=== PATIENT | female | born 1935 | race Caucasian/White ===

== ENCOUNTER 2018-01-22 23:17 | Emergency (ER) | payer MEDICARE, OTHER, SELFPAY ==
[2018-01-22 23:30] VITALS: BP 152/40; PULSE 61; RESP 17; TEMP 37.2; O2SAT 74; BMI 27.6
[2018-01-22 23:34] VITALS: O2SAT 96
--- NOTE | 2018-01-22 23:34 | ED_ITS ---
HPI - SOB/Dyspnea General Chief Complaint: Shortness of Breath/Dyspnea Stated Complaint: short of breath Time Seen by Provider: 01/22/18 23:33 Source: patient Mode of arrival: ambulatory Limitations: no limitations History of Present Illness The patient developed shortness of breath at home earlier today. She has no fever. Her cough is dry. She denies chest pain or peripheral edema. She has a remote history of CHF, nothing current. She has no history of CAD. She is a nonsmoker, she has no history of asthma. She is worried about pneumonia. She denies sinus pressure, sore throat or ear pressure. Her cough is nonproductive. She has no calf pain or swelling. She does have hypertension, hyperlipidemia and diabetes. She denies history of asthma, but she has previously been on albuterol inhaler. Related Data Home Medications Medication Instructions Recorded Confirmed VITAMIN D (Vitamin D3) #0 01/10/17 albuterol sulfate [Ventolin HFA] #0 01/10/17 amlodipine [Norvasc] #0 01/10/17 aspirin #0 01/10/17 carvedilol [Coreg] #0 01/10/17 cinacalcet [Sensipar] #0 01/10/17 clonazepam #0 01/10/17 fluticasone #0 01/10/17 fluticasone [Flovent HFA] #0 01/10/17 fluticasone-salmeterol [Advair #0 01/10/17 Diskus] insulin glargine [Lantus U-100 #0 01/10/17 Insulin] insulin regular human [Novolin R #0 01/10/17 Regular U-100 Insuln] loratadine #0 01/10/17 prochlorperazine maleate #0 01/10/17 simvastatin #0 01/10/17 tolterodine #0 01/10/17 Previous Rx's Medication Instructions Recorded prednisone 40 mg PO DAILY 5 Days #10 tab 01/23/18 Allergies Allergy/AdvReac Type Severity Reaction Status Date / Time Penicillins [PENICILLINS] Allergy Unknown RASH Unverified 09/29/17 12:03 Sulfa (Sulfonamide Allergy Unknown RASH Unverified 09/29/17 12:03 Antibiotics) [SULFA (SULFONAMIDE ANTIBIOTICS)] Review of Systems Review of Systems All systems reviewed & are unremarkable except as noted in HPI and below Constitutional Denies chills, Denies fever(s), Denies lethargy and Denies weakness Eyes Denies change in vision, Denies eye discharge and Denies irritation ENT Ears, Nose, Mouth, and Throat: Denies sinus pressure and Denies sore throat Cardiovascular Denies chest pain, Denies irregular heart rhythm, Denies lightheadedness, Denies palpitations, Denies dyspnea, Denies dyspnea on exertion and Denies orthopnea Respiratory Reports cough, Denies excessive phlegm production, Denies dyspnea and Denies dyspnea on exertion Gastrointestinal Gastrointestinal: Denies abdominal pain, Denies melena, Denies change in bowel habits, Reports diarrhea ( One episode this evening.), Denies nausea and Denies vomiting Genitourinary Denies dysuria Musculoskeletal Denies joint swelling and Denies muscle cramps Integumentary/Breasts Denies erythema, Denies rash and Denies wounds Neurologic Denies weakness Endocrine Denies palpitations PFSH Medical History Diabetes (Acute) Hyperlipidemia (Acute) Hypertension (Acute) Renal failure (Acute) Social History Smoking Status: Never smoker Exam Initial Vital Signs Initial Vital Signs: Vital Signs Temperature 99.0 F 01/22/18 23:30 Pulse Rate 61 01/22/18 23:30 Respiratory Rate 17 01/22/18 23:30 Blood Pressure 152/40 H 01/22/18 23:30 Pulse Oximetry 74 L 01/22/18 23:30 Const General: cooperative, comfortable and well developed Nutritional Appearance: well nourished Orientation: alert, awake, oriented x3 and not confused [facility] Head: normocephalic and atraumatic Ears: external ears normal and TM's normal bilaterally Nose: external nose normal and No nasal discharge Face and sinus: sinuses nontender, face symmetric, no sinus tenderness and No dry mucous membranes Mouth: oral mucosae normal and moist mucous membranes Teeth and gingiva: dentition normal Throat: tonsils normal and uvula midline Eyes General: appearance normal, both eyes and all related structures Eyelids: eyelids normal Conjunctivae: conjunctivae normal Sclera: sclerae normal Pupils: PERRL EOM: EOM intact bilaterally Neck Neck: normal visual inspection, trachea midline, No lymphadenopathy, No midline deformity and No JVD Lymphatic: No lymphadenopathy Chest Chest: normal inspection of the chest Resp Effort & Inspection: normal respiratory effort, able to speak in complete sentences, no respiratory distress and no use of accessory muscles Auscultation: no rales, no rhonchi and wheezes scattered wheezes Cardio Rate: regular rate Rhythm: regular rhythm Heart Sounds: S2 normal, no click, no gallops, no murmurs and no rubs Pulses: normal peripheral pulses GI Inspection: non-distended Palpation: soft, no hepatosplenomegaly, No guarding, No pulsatile mass and No tender Auscultation: normal bowel sounds Back/Spine/Pelvis Back: No CVA tenderness Skin General: no rashes or lesions noted Neuro General: alert, oriented x3, gait normal and no focal motor deficits Speech: speech normal Extrem General: full ROM, no clubbing, cyanosis or edema, no pedal edema and no calf tenderness Course Orders Ordered: ED Orders 01/22/18 23:36 Consult to Respiratory Therapy Evaluate & Treat EKG-12 Lead Stat 01/22/18 23:37 XR chest 1V Stat Discontinued Medications Albuterol (Ventolin) 2.5 mg INH NOW ONE Stop: 01/23/18 01:30 Last Admin: 01/23/18 01:54 Dose: 2.5 mg Albuterol/Ipratropium (Duoneb) 3 ml INH NOW ONE Stop: 01/22/18 23:35 Last Admin: 01/22/18 23:35 Dose: 3 ml Methylprednisolone (Solu-Medrol 125 Mg Vial) 125 mg IV NOW ONE Stop: 01/23/18 01:30 Last Admin: 01/23/18 01:51 Dose: 125 mg Vital Signs - 8 hr 01/22/18 23:30 01/22/18 23:34 01/22/18 23:35 Temperature 99.0 F Pulse Rate 61 58 L Respiratory Rate 17 19 Blood Pressure 152/40 H Blood Pressure [Left Arm] Pulse Oximetry 74 L 96 98 01/23/18 01:54 01/23/18 01:59 01/23/18 02:55 Temperature Pulse Rate 65 62 Respiratory Rate 18 17 Blood Pressure Blood Pressure [Left Arm] 187/47 H Pulse Oximetry 96 96 96 MDM - SOB/Dyspnea Lab Data Attestation: I reviewed the patient's lab results. Result diagrams: 01/22/18 00:26 01/22/18 00:26 Lab Results 01/22/18 01/22/18 01/22/18 Range/Units 00:26 00:26 00:26 WBC 9.1 (4.5-11.0) X10^3/uL RBC 2.84 L (4.0-5.2) X10^6/uL Hgb 9.9 L (12.0-16.0) g/dL Hct 29.1 L (36-46) % MCV 102.2 H (80-100) fL MCH 34.8 H (26-34) PG MCHC 34.0 (30-36) % RDW 12.9 (11.6-14.8) % Plt Count 308 (150-400) X10^3/uL Neut % (Auto) 75.8 H (50-75) % Lymph % (Auto) 11.9 L (25-40) % [place] % (Auto) 8.9 (3-14) % Eos % (Auto) 2.3 (2-4) % Baso % (Auto) 1.1 (0-2) % Neut # (Auto) 6900 H (1304-9642) /uL PT 11.1 (10.1-12.7) SECONDS INR 1.0 (0.9-1.3) APTT 28 (26.4-36.2) SECONDS D-Dimer 708 H (<230) ng/mL Sodium 138 (137-145) mmol/L Potassium 4.4 (3.4-5.1) mmol/L Chloride 90 L (98-107) mmol/L Carbon Dioxide 35 H (22-32) mmol/L BUN 37 H (7-17) mg/dL Creatinine 6.00 H (0.52-1.04) mg/dL Estimated GFR 6.7 L (>60) mL/min BUN/Creatinine Ratio 6.2 (6-22) Glucose 125 H (80-110) mg/dL Lactate (0.7-2.1) mmol/L Calcium 9.4 (8.4-10.2) mg/dL Magnesium 2.3 (1.6-2.3) mg/dL Total Creatine Kinase 55 (30-135) U/L Troponin I 0.024 (0.01-0.034) ng/mL B-Natriuretic Peptide 476.0 H (<100) 01/22/18 Range/Units 00:26 WBC (4.5-11.0) X10^3/uL RBC (4.0-5.2) X10^6/uL Hgb (12.0-16.0) g/dL Hct (36-46) % MCV (80-100) fL MCH (26-34) PG MCHC (30-36) % RDW (11.6-14.8) % Plt Count (150-400) X10^3/uL Neut % (Auto) (50-75) % Lymph % (Auto) (25-40) % [place] % (Auto) (3-14) % Eos % (Auto) (2-4) % Baso % (Auto) (0-2) % Neut # (Auto) (5224-2764) /uL PT (10.1-12.7) SECONDS INR (0.9-1.3) APTT (26.4-36.2) SECONDS D-Dimer (<230) ng/mL Sodium (137-145) mmol/L Potassium (3.4-5.1) mmol/L Chloride (98-107) mmol/L Carbon Dioxide (22-32) mmol/L BUN (7-17) mg/dL Creatinine (0.52-1.04) mg/dL Estimated GFR (>60) mL/min BUN/Creatinine Ratio (6-22) Glucose (80-110) mg/dL Lactate 0.6 L (0.7-2.1) mmol/L Calcium (8.4-10.2) mg/dL Magnesium (1.6-2.3) mg/dL Total Creatine Kinase (30-135) U/L Troponin I (0.01-0.034) ng/mL B-Natriuretic Peptide (<100) Imaging Data Chest x-ray: Attestation: I personally reviewed and interpreted this imaging study as follows: My impression: no acute findings ECG Data Attestation: I personally reviewed and interpreted this ECG as follows: ( EKG: Sinus bradycardia rate 55 bpm. RBBB. LAD FB. Possible old septal OR. No acute ST or T-wave changes. No ectopy. Normal intervals.) [facility] Narrative Medical decision making narrative: The patient presented with dyspnea and wheezing. She has received 2 nebulizer treatments, as well as IV steroids. She is on 2 L of home oxygen. Her lungs are now clear to auscultation and she is asymptomatic and dyspnea. There is no evidence of pneumonia or clinically significantCHF on the evaluation. Chest x-ray is clear. She has no JVD or peripheral edema. Discharge Plan Departure Patient Disposition: Home, Self-Care Clinical Impression: Asthma exacerbation Instructions: Asthma -- Adult Activity Restrictions/Additional Instructions: Continue to use Advair and Albuterol inhalers as previously directed. Prednisone 40 mg daily for 5 days. Return here for increasing respiratory problems. Otherwise follow up with your doctor next week, within a day or 2 of finishing the steroids. Prescriptions: New prednisone 20 mg tablet 40 mg PO DAILY 5 Days Qty: 10 RF: 0 No Action fluticasone-salmeterol [Advair Diskus] 250 MCG/50 MCG blister with device Qty: 0 RF: 0 amlodipine [Norvasc] 5 MG tablet Qty: 0 RF: 0 aspirin 81 MG tablet,chewable Qty: 0 RF: 0 albuterol sulfate [Ventolin HFA] 90 MCG/PUFF HFA aerosol inhaler Qty: 0 RF: 0 carvedilol [Coreg] 12.5 MG tablet Qty: 0 RF: 0 clonazepam 0.5 MG tablet Qty: 0 RF: 0 fluticasone [Flovent HFA] 10.6 GM HFA aerosol inhaler Qty: 0 RF: 0 insulin glargine [Lantus U-100 Insulin] 100 UNIT/1 ML solution Qty: 0 RF: 0 insulin regular human [Novolin R Regular U-100 Insuln] 100 UNIT/1 ML solution Qty: 0 RF: 0 fluticasone 16 GM spray,suspension Qty: 0 RF: 0 loratadine 10 MG tablet Qty: 0 RF: 0 tolterodine 4 MG capsule,extended release 24hr Qty: 0 RF: 0 prochlorperazine maleate 5 MG tablet Qty: 0 RF: 0 simvastatin 40 MG tablet Qty: 0 RF: 0 cinacalcet [Sensipar] 30 MG tablet Qty: 0 RF: 0 VITAMIN D (Vitamin D3) Qty: 0 RF: 0
[2018-01-22 23:35] VITALS: PULSE 58; RESP 19; O2SAT 98
[2018-01-22] MEDS: ALBUTEROL/IPRATROPIUM 3 ML AMPUL INH (23:35)
--- NOTE | 2018-01-22 23:37 | DI.RAD.S_ITS ---
PROCEDURE: XR CHEST 1V INDICATIONS: Dyspnea TECHNIQUE: One view of the chest was acquired. COMPARISON: [facility], , CHEST 1 VIEW, 01/10/2017, 2:36. FINDINGS: Surgical changes and devices: None. Lungs and pleura: No pleural effusions or pneumothorax. Lungs are mildly abnormal with a small degree of interstitial prominence, chronic in appearance. Mediastinum: Mediastinal contours appear normal. Heart size is normal. Bones and chest wall: No suspicious bony lesions. Overlying soft tissues appear unremarkable. IMPRESSION: Chronic mild interstitial prominence, no acute disease. Dictated by: Anupam Villatoro M.D. on 01/23/2018 at 9:41 Approved by: Anupam Villatoro M.D. on 01/23/2018 at 9:42
--- NOTE | 2018-01-22 23:58 | PC.NURSE ---
Attempted to place PIV. Unsuccessful 2x. Second RN to attempt.
[2018-01-23 00:32] LABS: Add Manual Diff / Slide Review NO; Basophils Percent Auto 1.1 % (0-2); Eosinophils Percent Auto 2.3 % (2-4); Hematocrit 29.1 % (36-46); Hemoglobin 9.9 g/dL (12.0-16.0); Lymphocytes Percent Auto 11.9 % (25-40); Mean Corpuscular Hemoglobin 34.8 PG (26-34); Mean Corpuscular Volume 102.2 fL (80-100); Monocytes Percent Auto 8.9 % (3-14); Neutrophils Absolute Auto 6900 /uL (3000-5900); Neutrophils Percent Auto 75.8 % (50-75); Platelet Count 308 X10^3/uL (150-400); Red Blood Cell Count 2.84 X10^6/uL (4.0-5.2); Red Cell Distribution Width 12.9 % (11.6-14.8); White Blood Cell Count 9.1 X10^3/uL (4.5-11.0)
[2018-01-23 01:02] LABS: Lactate (Lactic Acid) 0.6 mmol/L (0.7-2.1)
[2018-01-23 01:03] LABS: BUN Creatinine Ratio 6.2 (6-22); Blood Urea Nitrogen 37 mg/dL (7-17); Calcium 9.4 mg/dL (8.4-10.2); Carbon Dioxide 35 mmol/L (22-32); Chloride 90 mmol/L (98-107); Creatine Kinase 55 U/L (30-135); Estimated Glomerular Filt Rate 6.7 mL/min (>60); Glucose 125 mg/dL (80-110); HEMOLYSIS < 15 (0-50); Magnesium 2.3 mg/dL (1.6-2.3); Potassium 4.4 mmol/L (3.4-5.1); Sodium 138 mmol/L (137-145)
[2018-01-23 01:11] LABS: Prothrombin Time 11.1 SECONDS (10.1-12.7)
[2018-01-23 01:12] LABS: D Dimer 708 ng/mL (<230); PTT Partial Thromboplastin Tim 28 SECONDS (26.4-36.2)
[2018-01-23 01:14] LABS: Troponin I 0.024 ng/mL (0.01-0.034)
[2018-01-23] MEDS: methylPREDNISolone 125 MG/2 ML VIAL IV (01:51)
[2018-01-23 01:54] VITALS: PULSE 65; RESP 18; O2SAT 96
[2018-01-23] MEDS: ALBUTEROL 2.5 MG/3 ML NEB (ADULT) INH (01:54)
[2018-01-23 01:59] VITALS: O2SAT 88; O2SAT 96
[2018-01-23 02:55] VITALS: BP 187/47; PULSE 62; RESP 17; O2SAT 96
[2018-01-23 03:27] VITALS: BP 176/53; PULSE 63; RESP 15; TEMP 36.9; O2SAT 95
== END 2018-01-23 03:31 | disposition home or self-care (01) ==
PROVIDERS: Emergency Provider Emergency Medicine; Family Provider Internal Medicine
DX: J45.901 Unspecified asthma with (acute) exacerbation (principal)
CPT/HCPCS: 36591; 71045; 80048; 82550; 82553; 83605; 83735; 83880; 84484; 85025; 85379; 85610; 85730; 93005; 93010; 93041; 94640; 96374; 99283; 99285; 99291; J2930; J7613

== ENCOUNTER 2018-03-21 07:48 | Emergency (ER) | payer MEDICARE, OTHER, SELFPAY ==
[2018-03-21] VITALS (9 sets, daily range): BP systolic 140–184; BP diastolic 9–57; PULSE 60–76; RESP 18–20; TEMP 36.6; O2SAT 84–98
--- NOTE | 2018-03-21 07:57 | DI.RAD.S_ITS ---
PROCEDURE: XR CHEST 1V INDICATIONS: SOB TECHNIQUE: One view of the chest was acquired. COMPARISON: [facility], CR, XR CHEST 1V, 01/23/2018, 0:05. FINDINGS: Surgical changes and devices: None. Lungs and pleura: There are small bilateral pleural effusion. Bibasilar atelectasis/small infiltrate is also likely present. There is mild pulmonary edema. No gross pneumothorax. Mediastinum: Mediastinal contours appear normal. Heart size is enlarged. Bones and chest wall: No suspicious bony lesions. Overlying soft tissues appear unremarkable. IMPRESSION: CHF changes. Cannot rule out underlying small bibasilar infiltrate/atelectasis. Dictated by: Jett Echavarria M.D. on 03/21/2018 at 8:20 Approved by: Jett Echavarria M.D. on 03/21/2018 at 8:21
--- NOTE | 2018-03-21 08:25 | ED_ITS ---
HPI - SOB/Dyspnea General Chief Complaint: Shortness of Breath/Dyspnea Stated Complaint: SOB Time Seen by Provider: 03/21/18 07:54 Source: patient and EMS Mode of arrival: ambulatory Limitations: no limitations History of Present Illness Patient is an 82-year-old female who presents with shortness of breath. She is on home O2 of 2 L and history of asthma she also has a history of end-stage renal disease and is on dialysis. Is actually scheduled for dialysis today at 9 :00 a.m.. This morning she woke up and was extremely short of breath she was given 1 puff of her inhaler and she said it did not help. She denies any chest pain. She has a chronic dry cough which she says is unchanged. She has not had fever or chills. She has not missed dialysis. He did receive albuterol by EMS which she says has helped some but it is not completely better. MD Complaint: shortness of breath Related Data Home Medications Medication Instructions Recorded Confirmed aspirin 1 tab PO DAILY #0 01/10/17 03/21/18 carvedilol [Coreg] 1 tab PO BID #0 01/10/17 03/21/18 fluticasone 1 spray INTRANASAL DAILY #0 01/10/17 03/21/18 fluticasone-salmeterol [Advair 1 puff INHALATION BID #0 01/10/17 03/21/18 Diskus] loratadine 10 mg PO DAILY PRN #0 01/10/17 03/21/18 simvastatin 40 mg PO DAILY #0 01/10/17 03/21/18 Lactobacillus acidophilus 1 cap PO BIDWM 03/21/18 03/21/18 [Acidophilus] Nepro Liquid 1 ea PO QPM 03/21/18 03/21/18 T-Relief 1 applic TOPICAL PRN PRN 03/21/18 03/21/18 albuterol sulfate [ProAir HFA] 2 puff INHALATION Q6H PRN 03/21/18 03/21/18 amlodipine 10 mg PO BEDTIME 03/21/18 03/21/18 carica papaya [Papaya Enzyme] 1 tab PO DAILY PRN 03/21/18 03/21/18 cinacalcet [Sensipar] 1 tab PO DAILY 03/21/18 03/21/18 cinacalcet [Sensipar] 1 tab PO MOWEFR 03/21/18 03/21/18 docusate sodium 100 mg PO DAILY 03/21/18 03/21/18 doxazosin 4 mg PO BID 03/21/18 03/21/18 ferric citrate [Auryxia] 1 tab PO TID 03/21/18 03/21/18 fluticasone-salmeterol [Advair HFA] 1 puff INHALATION BID 03/21/18 03/21/18 hydralazine 1 tab PO QID 03/21/18 03/21/18 ibuprofen 200 mg PO Q4H PRN 03/21/18 03/21/18 lidocaine-prilocaine 1 applic TOPICAL TID 03/21/18 03/21/18 loperamide 1 dose PO DIRECTED MDD 60 ml 03/21/18 03/21/18 multivitamin [Daily Multi-Vitamin] 1 tab PO DAILY 03/21/18 03/21/18 ondansetron 4 mg PO TID PRN 03/21/18 03/21/18 phenazopyridine 200 mg PO TID PRN MDD 2 days 03/21/18 03/21/18 spironolactone 1 tab PO DAILY 03/21/18 03/21/18 trazodone 25 - 50 mg PO BEDTIME 03/21/18 03/21/18 valsartan 1 tab PO BEDTIME 03/21/18 03/21/18 Allergies Allergy/AdvReac Type Severity Reaction Status Date / Time Penicillins [PENICILLINS] Allergy Unknown RASH Verified 03/21/18 08:04 Sulfa (Sulfonamide Allergy Unknown RASH Verified 03/21/18 08:04 Antibiotics) [SULFA (SULFONAMIDE ANTIBIOTICS)] codeine Allergy Verified 03/21/18 08:04 Review of Systems Review of Systems All systems reviewed & are unremarkable except as noted in HPI and below Constitutional Denies chills, Denies fever(s), Denies lethargy and Denies weakness Cardiovascular Denies chest pain, Denies irregular heart rhythm, Denies lightheadedness, Denies palpitations and Denies orthopnea Respiratory Reports as per HPI Gastrointestinal Gastrointestinal: Denies abdominal pain, Denies change in bowel habits, Denies diarrhea, Denies nausea and Denies vomiting Musculoskeletal Denies back pain, Denies muscle weakness, Denies numbness and Denies tingling Integumentary/Breasts Denies pruritus, Denies erythema, Denies rash and Denies wounds Neurologic Denies numbness, Denies tingling and Denies weakness Endocrine Denies palpitations [facility] Medical History Diabetes (Acute) Hyperlipidemia (Acute) Hypertension (Acute) Renal failure (Acute) Social History Smoking Status: Never smoker Exam Initial Vital Signs Initial Vital Signs: Vital Signs Temperature 97.9 F 03/21/18 07:58 Pulse Rate 76 03/21/18 07:58 Respiratory Rate 18 03/21/18 07:58 Blood Pressure 184/57 H 03/21/18 07:58 Pulse Oximetry 96 03/21/18 07:58 GENERAL: Cooperative elderly female and in [no acute] distress. HEENT: Head atraumatic,EOMI, pupils reactive, face symmetric CARDIOVASCULAR: Regular rate and rhythm without murmurs, rubs or gallops. RESPIRATORY: Breath sounds equal bilaterally, no wheezes rales or rhonchi. ABDOMEN: Soft, nontender. Normoactive bowel sounds all 4 quadrants. No guarding or rebound. : No CVA tenderness EXTREMITIES: Normal range of motion, no clubbing or edema. Neurovascularly intact NEUROLOGICAL: Alert and oriented x4.Normal gait and speech. Cranial nerves II through XII grossly intact. SKIN: Warm, dry, no laceration, no petechiae, no rashes or lesions. Course Orders Ordered: ED Orders 03/21/18 07:55 Consult to Respiratory Therapy Evaluate & Treat EKG-12 Lead Stat 03/21/18 07:57 XR chest 1V Stat 03/21/18 08:30 B Type Natriuretic Peptide Stat Basic Metabolic Panel Stat Complete Blood Count AUTO DIFF Stat Troponin & CK Cardiac Panel Stat Discontinued Medications Albuterol/Ipratropium (Duoneb) 3 ml INH NOW ONE Stop: 03/21/18 07:56 Last Admin: 03/21/18 08:36 Dose: 3 ml Carvedilol (Coreg) 12.5 mg PO NOW ONE Stop: 03/21/18 07:59 Last Admin: 03/21/18 08:34 Dose: 12.5 mg Hydralazine HCl (Apresoline) 25 mg PO NOW ONE Stop: 03/21/18 07:59 Last Admin: 03/21/18 08:34 Dose: 25 mg Methylprednisolone (Solu-Medrol 125 Mg Vial) 125 mg IV NOW ONE Stop: 03/21/18 07:56 Last Admin: 03/21/18 08:34 Dose: 125 mg Vital Signs - 8 hr 03/21/18 07:58 03/21/18 08:34 03/21/18 08:38 Temperature 97.9 F Pulse Rate 76 60 71 Respiratory Rate 18 19 Blood Pressure 184/57 H 177/46 H Blood Pressure [Left Arm] Pulse Oximetry 96 96 03/21/18 08:42 03/21/18 09:33 03/21/18 09:34 Temperature Pulse Rate 70 66 Respiratory Rate 20 18 Blood Pressure Blood Pressure [Left Arm] 176/46 H 156/9 H Pulse Oximetry 95 84 L 95 03/21/18 09:35 03/21/18 10:05 03/21/18 11:06 Temperature Pulse Rate 65 65 60 Respiratory Rate 20 18 Blood Pressure 156/39 H Blood Pressure [Left Arm] 165/36 H 140/36 L Pulse Oximetry 97 98 MDM - SOB/Dyspnea Medical Records Attestation: I reviewed the patient's medical records. Lab Data Attestation: I reviewed the patient's lab results. Result diagrams: 03/21/18 08:30 03/21/18 08:30 Lab Results 03/21/18 03/21/18 Range/Units 08:30 08:30 WBC 10.0 (4.5-11.0) X10^3/uL RBC 2.77 L (4.0-5.2) X10^6/uL Hgb 9.7 L (12.0-16.0) g/dL Hct 28.1 L (36-46) % MCV 101.2 H (80-100) fL MCH 34.9 H (26-34) PG MCHC 34.4 (30-36) % RDW 13.9 (11.6-14.8) % Plt Count 342 (150-400) X10^3/uL Neut % (Auto) 86.0 H (50-75) % Lymph % (Auto) 7.0 L (25-40) % [place] % (Auto) 4.7 (3-14) % Eos % (Auto) 1.6 L (2-4) % Baso % (Auto) 0.7 (0-2) % Neut # (Auto) 8600 H (5355-2794) /uL Sodium 139 (137-145) mmol/L Potassium 4.8 (3.4-5.1) mmol/L Chloride 96 L (98-107) mmol/L Carbon Dioxide 32 (22-32) mmol/L BUN 41 H (7-17) mg/dL Creatinine 7.40 H (0.52-1.04) mg/dL Estimated GFR 5.3 L (>60) mL/min BUN/Creatinine Ratio 5.5 L (6-22) Glucose 158 H (80-110) mg/dL Calcium 8.9 (8.4-10.2) mg/dL Total Creatine Kinase 57 (30-135) U/L CK-MB (CK-2) TNP CK-MB (CK-2) Rel Index TNP Troponin I 0.016 (0.01-0.034) ng/mL B-Natriuretic Peptide 1050.0 H (<100) Imaging Data Chest x-ray: Radiologist's impression: PROCEDURE: XR CHEST 1V INDICATIONS: SOB TECHNIQUE: One view of the chest was acquired. COMPARISON: [facility], , XR CHEST 1V, 01/23/2018, 0:05. FINDINGS: Surgical changes and devices: None. Lungs and pleura: There are small bilateral pleural effusion. Bibasilar atelectasis/small infiltrate is also likely present. There is mild pulmonary edema. No gross pneumothorax. Mediastinum: Mediastinal contours appear normal. Heart size is enlarged. Bones and chest wall: No suspicious bony lesions. Overlying soft tissues appear unremarkable. IMPRESSION: CHF changes. Cannot rule out underlying small bibasilar infiltrate/atelectasis. Dictated by: Jett Echavarria M.D. on 03/21/2018 at 8:20 ECG Data Attestation: I personally reviewed and interpreted this ECG as follows: Prior ECG tracings: available for review Interpretation: Sinus rhythm rate [address]-T changes is partial right bundle branch block similar to previous EKG. MA interval to 1 9, QTC 475, QRS 66 no ischemic changes 1st degree AV block similar to previous MDM Narrative Medical decision making narrative: Patient had some relief with albuterol. She does have a history of asthma as she also has a little bit of fluid on x-ray. She will need dialysis but is not requiring emergent dialysis. She is scheduled for dialysis today at 9:00 a.m. which she will not make. We have actually rescheduled her appointment for 12:40, and thing that dialysis will help her breathing the most. Her electrolytes are within normal limits. She is sometimes able to go with out oxygen for couple of hours or minutes. However a trial run of O2 she does desat into the mid 80s. Her son is going home to get her portable oxygen. And then will take her directly to dialysis. Discharge Plan Departure Patient Disposition: Home Clinical Impression: Asthma with exacerbation Discharge Date/Time: 03/21/18 11:07 Interventions: ED Discharge Assessment Last Done: 03/21/18 11:07 Instructions: Asthma -- Adult Activity Restrictions/Additional Instructions: *You have been diagnosed with asthma exacerbation *What to do: You do need dialysis today think that will also help you feel better. X-ray does show mild amount of fluid *Continue to take medications as directed -used albuterol inhaler with spacer every 4 hr if needed for shortness of breath *Follow up with your primary care provider in 2-3 days *Return to ER if you should have increasing chest pain, shortness of breath or any new, worsening or concerning symptoms Prescriptions: No Action fluticasone-salmeterol [Advair Diskus] 250 MCG/50 MCG blister with device 1 puff Inhalation BID Qty: 0 RF: 0 aspirin 81 MG tablet,chewable 1 tab PO DAILY Qty: 0 RF: 0 carvedilol [Coreg] 12.5 MG tablet 1 tab PO BID Qty: 0 RF: 0 fluticasone 16 GM spray,suspension 1 spray Intranasal DAILY Qty: 0 RF: 0 loratadine 10 MG tablet 10 mg PO DAILY PRN (Reason: Congestion) Qty: 0 RF: 0 simvastatin 40 MG tablet 40 mg PO DAILY Qty: 0 RF: 0 trazodone 50 mg tablet 25 - 50 mg PO BEDTIME RF: 0 hydralazine 25 mg tablet 1 tab PO QID RF: 0 spironolactone 25 mg tablet 1 tab PO DAILY RF: 0 amlodipine 10 mg tablet 10 mg PO BEDTIME RF: 0 valsartan 320 mg tablet 1 tab PO BEDTIME RF: 0 doxazosin 4 mg tablet 4 mg PO BID RF: 0 albuterol sulfate [ProAir HFA] 90 mcg/actuation HFA aerosol inhaler 2 puff Inhalation Q6H PRN (Reason: cough,wheeze,shortness of candis) RF: 0 ferric citrate [Auryxia] 210 mg iron tablet 1 tab PO TID RF: 0 fluticasone-salmeterol [Advair HFA] 230-21 mcg/actuation Hfa Aerosol Inhaler 1 puff Inhalation BID RF: 0 multivitamin [Daily Multi-Vitamin] Tablet 1 tab PO DAILY RF: 0 lidocaine-prilocaine 2.5-2.5 % Cream 1 applic Topical TID RF: 0 docusate sodium 100 mg Capsule 100 mg PO DAILY RF: 0 carica papaya [Papaya Enzyme] Tablet 1 tab PO DAILY PRN (Reason: supplement) RF: 0 loperamide 1 mg/5 mL Liquid 1 dose PO DIRECTED MDD 60 ml RF: 0 phenazopyridine 100 mg Tablet 200 mg PO TID MDD 2 days PRN (Reason: urinary pain) RF: 0 ibuprofen 200 mg Tablet 200 mg PO Q4H PRN (Reason: pain) RF: 0 Lactobacillus acidophilus [Acidophilus] Capsule 1 cap PO BIDWM RF: 0 ondansetron 4 mg Tablet,Disintegrating 4 mg PO TID PRN (Reason: Nausea) RF: 0 cinacalcet [Sensipar] 30 mg Tablet 1 tab PO DAILY RF: 0 cinacalcet [Sensipar] 60 mg Tablet 1 tab PO MOWEFR RF: 0 Nepro Liquid 1 ea PO QPM RF: 0 T-Relief cream 1 applic Topical PRN PRN (Reason: pain) RF: 0 Referrals: Demetrius Zapata MD [Physician] - Heraclio Kurtz MD [Family Provider] -
[2018-03-21] MEDS: CARVEDILOL 12.5 MG TABLET PO (08:34)
[2018-03-21] MEDS: methylPREDNISolone 125 MG/2 ML VIAL IV (08:34)
[2018-03-21] MEDS: HYDRALAZINE 25 MG TABLET PO (08:34)
[2018-03-21] MEDS: ALBUTEROL/IPRATROPIUM 3 ML AMPUL INH (08:36)
--- NOTE | 2018-03-21 08:40 | PC.NURSE ---
Attempted to call Miguel Grossman in [place] to reschedule patient's 9a appt. no one available so left message for them to call me...[phone]
[2018-03-21 08:41] LABS: Add Manual Diff / Slide Review NO; Basophils Percent Auto 0.7 % (0-2); Eosinophils Percent Auto 1.6 % (2-4); Hematocrit 28.1 % (36-46); Hemoglobin 9.7 g/dL (12.0-16.0); Mean Corpuscular HGB Conc 34.4 % (30-36); Mean Corpuscular Hemoglobin 34.9 PG (26-34); Mean Corpuscular Volume 101.2 fL (80-100); Monocytes Percent Auto 4.7 % (3-14); Neutrophils Absolute Auto 8600 /uL (3000-5900); Platelet Count 342 X10^3/uL (150-400); Red Blood Cell Count 2.77 X10^6/uL (4.0-5.2); Red Cell Distribution Width 13.9 % (11.6-14.8)
[2018-03-21 09:02] LABS: BUN Creatinine Ratio 5.5 (6-22); Blood Urea Nitrogen 41 mg/dL (7-17); Calcium 8.9 mg/dL (8.4-10.2); Carbon Dioxide 32 mmol/L (22-32); Chloride 96 mmol/L (98-107); Creatine Kinase 57 U/L (30-135); Estimated Glomerular Filt Rate 5.3 mL/min (>60); Glucose 158 mg/dL (80-110); Potassium 4.8 mmol/L (3.4-5.1); Sodium 139 mmol/L (137-145)
[2018-03-21 09:13] LABS: HEMOLYSIS 77 (0-50); Troponin I 0.016 ng/mL (0.01-0.034)
--- NOTE | 2018-03-21 10:38 | RT ---
1015 Patient educated on the use of spacer with her inhaler. Verbalized understanding.
== END 2018-03-21 11:07 | disposition home or self-care (01) ==
PROVIDERS: Emergency Provider Emergency Medicine; Family Provider Internal Medicine
DX: J45.901 Unspecified asthma with (acute) exacerbation (principal)
CPT/HCPCS: 36591; 71045; 80048; 82550; 83880; 84484; 85025; 93005; 94640; 96374; 99283; 99285; J2930

== ENCOUNTER 2018-12-05 08:27 | Emergency (ER) | payer MEDICARE, OTHER, SELFPAY ==
[2018-12-05] VITALS (9 sets, daily range): BP systolic 148–164; BP diastolic 42–54; PULSE 59–64; RESP 16–22; TEMP 36.7; O2SAT 87–97; BMI 24.1
--- NOTE | 2018-12-05 08:51 | ED_ITS ---
HPI - SOB/Dyspnea General Chief Complaint: Shortness of Breath/Dyspnea Stated Complaint: TROUBLE BREATHING/WEAKNESS Time Seen by Provider: 12/05/18 08:40 Source: patient Mode of arrival: ambulatory Limitations: no limitations History of Present Illness Patient is an 83-year-old female. She is a DNR. She is a dialysis patient. Her last dialysis treatment was Wednesday of last week. Also has a history of COPD. Is on 3 L of oxygen by nasal cannula at home at all times. She stated that she is here because she has shortness of breath and weak. The shortness of breath is not new however has become more persistent over the past day. No fevers. Does have occasional chest pain but none currently. She says that chest pain is not what brought her to the emergency department today. Yesterday she had multiple episodes of vomiting and diarrhea. This was after she took prune juice to help with the constipation issue that she was having. She arrives today feeling weak and short of breath. Related Data Home Medications Medication Instructions Recorded Confirmed aspirin 1 tab PO DAILY #0 01/10/17 03/21/18 carvedilol [Coreg] 1 tab PO BID #0 01/10/17 12/05/18 fluticasone propion-salmeterol 1 puff INHALATION BID #0 01/10/17 03/21/18 [Advair Diskus] fluticasone propionate 1 spray INTRANASAL DAILY #0 01/10/17 03/21/18 loratadine 10 mg PO DAILY PRN #0 01/10/17 03/21/18 Lactobacillus acidophilus 1 cap PO BIDWM 03/21/18 03/21/18 [Acidophilus] Nepro Liquid 1 ea PO QPM 03/21/18 03/21/18 T-Relief 1 applic TOPICAL PRN PRN 03/21/18 03/21/18 albuterol sulfate [ProAir HFA] 2 puff INHALATION Q6H PRN 03/21/18 03/21/18 amlodipine 10 mg PO BEDTIME 03/21/18 12/05/18 carica papaya [Papaya Enzyme] 1 tab PO DAILY PRN 03/21/18 03/21/18 cinacalcet [Sensipar] 1 tab PO DAILY 03/21/18 03/21/18 cinacalcet [Sensipar] 1 tab PO MOWEFR 03/21/18 03/21/18 docusate sodium 100 mg PO DAILY 03/21/18 03/21/18 doxazosin 4 mg PO BID 03/21/18 12/05/18 ferric citrate [Auryxia] 1 tab PO TID 03/21/18 03/21/18 fluticasone propion-salmeterol 1 puff INHALATION BID 03/21/18 12/05/18 [Advair HFA] ibuprofen 200 mg PO Q4H PRN 03/21/18 03/21/18 lidocaine-prilocaine 1 applic TOPICAL TID 03/21/18 03/21/18 loperamide 1 dose PO DIRECTED MDD 60 ml 03/21/18 03/21/18 multivitamin [Daily Multi-Vitamin] 1 tab PO DAILY 03/21/18 03/21/18 ondansetron 4 mg PO TID PRN 03/21/18 03/21/18 phenazopyridine 200 mg PO TID PRN MDD 2 days 03/21/18 03/21/18 spironolactone 25 mg PO DAILY 03/21/18 12/05/18 trazodone 25 - 50 mg PO BEDTIME 03/21/18 12/05/18 valsartan 1 tab PO BEDTIME 03/21/18 12/05/18 atorvastatin 40 mg PO DAILY 12/05/18 12/05/18 hydralazine 12/05/18 Allergies Allergy/AdvReac Type Severity Reaction Status Date / Time Penicillins [PENICILLINS] Allergy Unknown RASH Verified 12/05/18 08:37 Sulfa (Sulfonamide Allergy Unknown RASH Verified 12/05/18 08:37 Antibiotics) [SULFA (SULFONAMIDE ANTIBIOTICS)] codeine Allergy Verified 12/05/18 08:37 Review of Systems Constitutional Denies fever(s) and Denies headache(s) ENT Ears, Nose, Mouth, and Throat: Denies headache(s) Cardiovascular Reports chest pain, Denies irregular heart rhythm, Denies palpitations and Reports dyspnea Respiratory Denies cough and Reports dyspnea Gastrointestinal Gastrointestinal: Denies abdominal pain, Denies nausea and Denies vomiting Comments: No nausea vomiting currently, diarrhea yesterday Genitourinary Denies dysuria Musculoskeletal Denies myalgias, Denies arthralgias and Denies tingling Integumentary/Breasts Denies lesions and Denies rash Neurologic Denies behavioral changes, Denies headache(s) and Denies tingling Psychiatric Denies behavioral changes Endocrine Denies palpitations Hematologic/Lymphatic Denies easy bleeding and Denies easy bruising [facility] Medical History Diabetes (Acute) Hyperlipidemia (Acute) Hypertension (Acute) Renal failure (Acute) Social History Smoking Status: Never smoker Exam Initial Vital Signs Initial Vital Signs: Vital Signs Temperature 98.1 F 12/05/18 08:37 Pulse Rate 60 12/05/18 08:37 Respiratory Rate 16 12/05/18 08:37 Pulse Oximetry 96 12/05/18 08:37 Const General: cooperative, well developed and well groomed Orientation: alert, awake and oriented x3 HENMT Head: normal to inspection and normocephalic Resp Effort & Inspection: not labored Auscultation: clear to auscultation bilaterally Other: On 3 L of nasal cannula Cardio Rate: regular rate Rhythm: regular rhythm Pulses: radial pulses present GI Inspection: non-distended Palpation: soft, No firm and tender (Mildly tender diffuse) Skin Lesions: no lesions Rashes: no rashes Neuro General: alert and awake Cognition: normal cognition Speech: speech normal Extrem General: normal to inspection and capillary refill normal Psych Appearance: grossly normal and well kempt Course Orders Ordered: ED Orders 12/05/18 08:34 EKG-12 Lead Stat 12/05/18 08:35 Consult to Respiratory Therapy Evaluate & Treat 12/05/18 08:50 B Type Natriuretic Peptide Stat Basic Metabolic Panel Stat Complete Blood Count AUTO DIFF Stat Lactate (Lactic Acid) Stat Magnesium Stat Procalcitonin Stat Troponin & CK Cardiac Panel Stat 12/05/18 09:02 XR chest 1V Stat 12/05/18 09:08 Blood Culture Stat Discontinued Medications Albuterol/Ipratropium (Duoneb) 3 ml INH NOW ONE Stop: 12/05/18 08:36 Last Admin: 12/05/18 09:05 Dose: Not Given Methylprednisolone (Solu-Medrol 125 Mg Vial) 125 mg IV NOW ONE Stop: 12/05/18 08:36 Last Admin: 12/05/18 09:05 Dose: Not Given Vital Signs - 8 hr 06/17/19 08:37 12/05/18 10:07 12/05/18 10:42 Temperature 98.1 F Pulse Rate 60 62 Respiratory Rate 16 17 Blood Pressure [Left Arm] 164/42 H Pulse Oximetry 96 87 L 96 MDM - SOB/Dyspnea Lab Data Attestation: I reviewed the patient's lab results. Result diagrams: 12/05/18 08:50 12/05/18 08:50 Lab Results 12/05/18 12/05/18 12/05/18 Range/Units 08:50 08:50 08:50 WBC 12.3 H (4.5-11.0) X10^3/uL RBC 3.30 L (4.0-5.2) X10^6/uL Hgb 10.9 L (12.0-16.0) g/dL Hct 33.1 L (36-46) % MCV 100.3 H (80-100) fL MCH 33.0 (26-34) PG MCHC 32.9 (30-36) % RDW 13.9 (11.6-14.8) % Plt Count 348 (150-400) X10^3/uL Neut % (Auto) 89.4 H (50-75) % Lymph % (Auto) 3.6 L (25-40) % Antelope % (Auto) 5.0 (3-14) % Eos % (Auto) 1.3 L (2-4) % Baso % (Auto) 0.7 (0-2) % Neut # (Auto) 35707 H (9088-7584) /uL Lymph # (Auto) 400 L (5297-1473) /uL Antelope # (Auto) 600 (0-900) /uL Eos # (Auto) 200 (0-450) /uL Baso # (Auto) 100 (0-100) /uL Sodium 136 L (137-145) mmol/L Potassium 5.4 H (3.4-5.1) mmol/L Chloride 92 L (98-107) mmol/L Carbon Dioxide 27 (22-32) mmol/L BUN 47 H (7-17) mg/dL Creatinine 6.40 H (0.52-1.04) mg/dL Estimated GFR 6.2 L (>60) mL/min BUN/Creatinine Ratio 7.3 (6-22) Glucose 105 (80-110) mg/dL Lactate (0.7-2.1) mmol/L Calcium 9.3 (8.4-10.2) mg/dL Magnesium 2.8 H (1.6-2.3) mg/dL Total Creatine Kinase 41 (30-135) U/L CK-MB (CK-2) TNP CK-MB (CK-2) Rel Index TNP Troponin I < 0.012 (0.01-0.034) ng/mL Procalcitonin 0.63 H (<0.5) ng/mL 12/05/18 Range/Units 08:50 WBC (4.5-11.0) X10^3/uL RBC (4.0-5.2) X10^6/uL Hgb (12.0-16.0) g/dL Hct (36-46) % MCV (80-100) fL MCH (26-34) PG MCHC (30-36) % RDW (11.6-14.8) % Plt Count (150-400) X10^3/uL Neut % (Auto) (50-75) % Lymph % (Auto) (25-40) % Antelope % (Auto) (3-14) % Eos % (Auto) (2-4) % Baso % (Auto) (0-2) % Neut # (Auto) (1403-0317) /uL Lymph # (Auto) (7825-8955) /uL Antelope # (Auto) (0-900) /uL Eos # (Auto) (0-450) /uL Baso # (Auto) (0-100) /uL Sodium (137-145) mmol/L Potassium (3.4-5.1) mmol/L Chloride (98-107) mmol/L Carbon Dioxide (22-32) mmol/L BUN (7-17) mg/dL Creatinine (0.52-1.04) mg/dL Estimated GFR (>60) mL/min BUN/Creatinine Ratio (6-22) Glucose (80-110) mg/dL Lactate 0.7 (0.7-2.1) mmol/L Calcium (8.4-10.2) mg/dL Magnesium (1.6-2.3) mg/dL Total Creatine Kinase (30-135) U/L CK-MB (CK-2) CK-MB (CK-2) Rel Index Troponin I (0.01-0.034) ng/mL Procalcitonin (<0.5) ng/mL Imaging Data Chest x-ray: Radiologist's impression: [address] [address] XRay Report Signed Patient: Alyssia Chavez GMR#: [id number] : 5Acct:[id number] Age/Sex: 83 / FDate of Service: 12/05/18 Loc: ED Accession Number: [id number] Procedure: XR chest 1V Ordering Provider: Yvon Yen D.O. PROCEDURE: XR CHEST 1V INDICATIONS: Shortness of breath TECHNIQUE: One view of the chest was acquired. COMPARISON: Merged With [facility], CR, XR CHEST 1 VIEW, 10/20/2018, 10:47. [facility], CR, XR CHEST 1V, 03/21/2018, 8:01. FINDINGS: Surgical changes and devices: None. Lungs and pleura: There is a moderate right and mild left pleural effusion, increased compared to prior exam. Increased pulmonary vascularity is present. Mediastinum: Mediastinal contours appear normal. Heart size is enlarged. Bones and chest wall: No suspicious bony lesions. Overlying soft tissues appear unremarkable. IMPRESSION: Bilateral effusions, right greater than left with increased vascularity consistent with edema. Underlying areas of developing atelectasis/pneumonia cannot be excluded. Recommend interval followup after appropriate therapy to document resolution and exclude presence of underlying mass lesion. Dictated by: Daphnie Denise M.D. on 12/05/2018 at 9:32 Approved by: Daphnie Denise M.D. on 12/05/2018 at 9:33 ECG Data Attestation: I personally reviewed and interpreted this ECG as follows: Prior ECG tracings: not available for review Interpretation: Sinus rhythm Ventricular rate is 60 First degree AV block as needed oval 230 Right bundle branch block Left anterior fascicular block QRS duration 149 milliseconds Normal QTC No ST T wave changes MDM Narrative Medical decision making narrative: Patient does have a right-sided pleural effusion. Upon ambulating here in the emergency department she did become hypoxic to the mid 80s even on her 3 L of oxygen by nasal cannula. She also symptomatic [place] became much worse. Also became dizzy. Secondary to her dialysis in the pleural effusion transfer to [facility] is warranted. Discussed the case with hospitalist who accepts the patient in transfer. Discussed the transfer with the patient and family who was at bedside. They expressed understanding and agreement plan plan Discharge Plan Departure Patient Disposition: [facility] Clinical Impression: Pleural effusion, Shortness of breath, Hypoxia Prescriptions: No Action fluticasone propion-salmeterol [Advair Diskus] 250 MCG/50 MCG blister with device 1 puff Inhalation BID Qty: 0 RF: 0 aspirin 81 MG tablet,chewable 1 tab PO DAILY Qty: 0 RF: 0 carvedilol [Coreg] 12.5 MG tablet 1 tab PO BID Qty: 0 RF: 0 fluticasone propionate 16 GM spray,suspension 1 spray Intranasal DAILY Qty: 0 RF: 0 loratadine 10 MG tablet 10 mg PO DAILY PRN (Reason: Congestion) Qty: 0 RF: 0 trazodone 50 mg tablet 25 - 50 mg PO BEDTIME RF: 0 spironolactone 25 mg tablet 25 mg PO DAILY RF: 0 amlodipine 10 mg tablet 10 mg PO BEDTIME RF: 0 valsartan 320 mg tablet 1 tab PO BEDTIME RF: 0 doxazosin 4 mg tablet 4 mg PO BID RF: 0 albuterol sulfate [ProAir HFA] 90 mcg/actuation HFA aerosol inhaler 2 puff Inhalation Q6H PRN (Reason: cough,wheeze,shortness of candis) RF: 0 ferric citrate [Auryxia] 210 mg iron tablet 1 tab PO TID RF: 0 Advair HFA 230-21 mcg/actuation Hfa Aerosol Inhaler 1 puff Inhalation BID RF: 0 multivitamin [Daily Multi-Vitamin] Tablet 1 tab PO DAILY RF: 0 lidocaine-prilocaine 2.5-2.5 % Cream 1 applic Topical TID RF: 0 docusate sodium 100 mg Capsule 100 mg PO DAILY RF: 0 carica papaya [Papaya Enzyme] Tablet 1 tab PO DAILY PRN (Reason: supplement) RF: 0 loperamide 1 mg/5 mL Liquid 1 dose PO DIRECTED MDD 60 ml RF: 0 phenazopyridine 100 mg Tablet 200 mg PO TID MDD 2 days PRN (Reason: urinary pain) RF: 0 ibuprofen 200 mg Tablet 200 mg PO Q4H PRN (Reason: pain) RF: 0 Lactobacillus acidophilus [Acidophilus] Capsule 1 cap PO BIDWM RF: 0 ondansetron 4 mg Tablet,Disintegrating 4 mg PO TID PRN (Reason: Nausea) RF: 0 cinacalcet [Sensipar] 30 mg Tablet 1 tab PO DAILY RF: 0 cinacalcet [Sensipar] 60 mg Tablet 1 tab PO MOWEFR RF: 0 Nepro Liquid 1 ea PO QPM RF: 0 T-Relief cream 1 applic Topical PRN PRN (Reason: pain) RF: 0 atorvastatin 40 mg tablet 40 mg PO DAILY RF: 0 hydralazine 50 mg tablet RF: 0 Referrals: Fuentes Singleton MD [Primary Care Provider] -
--- NOTE | 2018-12-05 08:56 | PC.NURSE ---
pt reports she had fluid drained from right lung about a month ago. pt also a dialysis patient and is due to have dialysis now, but canceled to come here.
[2018-12-05 09:02] LABS: Add Manual Diff / Slide Review NO; Basophils Absolute Auto 100 /uL (0-100); Basophils Percent Auto 0.7 % (0-2); Eosinophils Absolute Auto 200 /uL (0-450); Eosinophils Percent Auto 1.3 % (2-4); Hematocrit 33.1 % (36-46); Hemoglobin 10.9 g/dL (12.0-16.0); Lymphocytes Absolute Auto 400 /uL (1100-4500); Lymphocytes Percent Auto 3.6 % (25-40); Mean Corpuscular HGB Conc 32.9 % (30-36); Mean Corpuscular Volume 100.3 fL (80-100); Monocytes Absolute Auto 600 /uL (0-900); Neutrophils Absolute Auto 11000 /uL (1500-7000); Neutrophils Percent Auto 89.4 % (50-75); Platelet Count 348 X10^3/uL (150-400); Red Cell Distribution Width 13.9 % (11.6-14.8); White Blood Cell Count 12.3 X10^3/uL (4.5-11.0)
--- NOTE | 2018-12-05 09:02 | DI.RAD.S_ITS ---
PROCEDURE: XR CHEST 1V INDICATIONS: Shortness of breath TECHNIQUE: One view of the chest was acquired. COMPARISON: [facility], CR, XR CHEST 1 VIEW, 10/20/2018, 10:47. [facility], CR, XR CHEST 1V, 03/21/2018, 8:01. FINDINGS: Surgical changes and devices: None. Lungs and pleura: There is a moderate right and mild left pleural effusion, increased compared to prior exam. Increased pulmonary vascularity is present. Mediastinum: Mediastinal contours appear normal. Heart size is enlarged. Bones and chest wall: No suspicious bony lesions. Overlying soft tissues appear unremarkable. IMPRESSION: Bilateral effusions, right greater than left with increased vascularity consistent with edema. Underlying areas of developing atelectasis/pneumonia cannot be excluded. Recommend interval followup after appropriate therapy to document resolution and exclude presence of underlying mass lesion. Dictated by: Daphnie Denise M.D. on 12/05/2018 at 9:32 Approved by: Daphnie Denise M.D. on 12/05/2018 at 9:33
[2018-12-05 09:14] LABS: Lactate (Lactic Acid) 0.7 mmol/L (0.7-2.1)
[2018-12-05 09:16] LABS: BUN Creatinine Ratio 7.3 (6-22); Blood Urea Nitrogen 47 mg/dL (7-17); Calcium 9.3 mg/dL (8.4-10.2); Carbon Dioxide 27 mmol/L (22-32); Chloride 92 mmol/L (98-107); Creatine Kinase 41 U/L (30-135); Estimated Glomerular Filt Rate 6.2 mL/min (>60); Glucose 105 mg/dL (80-110); HEMOLYSIS < 15 (0-50); Magnesium 2.8 mg/dL (1.6-2.3); Sodium 136 mmol/L (137-145)
[2018-12-05 09:17] LABS: Potassium 5.4 mmol/L (3.4-5.1)
[2018-12-05 09:26] LABS: Troponin I < 0.012 ng/mL (0.01-0.034)
[2018-12-05 09:30] LABS: Procalcitonin 0.63 ng/mL (<0.5)
[2018-12-05 11:15] LABS: B Type Natriuretic Peptide 1250 (<100)
== END 2018-12-05 12:45 | disposition short-term general hospital (02) ==
PROVIDERS: Emergency Provider Emergency Medicine; Family Provider Internal Medicine; PCP Internal Medicine
DX: J90 Pleural effusion, not elsewhere classified (principal); R06.02 Shortness of breath; R09.02 Hypoxemia; R07.9 Chest pain, unspecified; Z99.81 Dependence on supplemental oxygen; Z99.2 Dependence on renal dialysis
CPT/HCPCS: 36415; 36591; 71045; 80048; 82550; 83605; 83735; 83880; 84145; 84484; 85025; 87040; 93005; 99284; 99285

== ENCOUNTER 2019-11-17 09:39 | Emergency (ER) | payer MEDICARE, OTHER, SELFPAY ==
[2019-11-17 09:43] VITALS: BP 136/63; PULSE 60; RESP 14; TEMP 36.7; O2SAT 94; BMI 22.9
--- NOTE | 2019-11-17 10:55 | ED_ITS ---
HPI - Nausea/Vomiting/Diarrhea General Chief complaint: Nausea/Vomiting/Diarrhea Stated complaint: UPSET STOMACH AND COUGH Time Seen by Provider: 11/17/19 10:55 Source: patient and family Mode of arrival: Wheelchair Limitations: no limitations History of Present Illness HPI Narrative: CC: Nausea and vomiting with intermittent diarrhea HPI: The patient is an 84-year-old female who states that she is on hemodialys is. She gets dialysis on Wednesdays and Fridays. Her last dialysis was Wednesday, 4 days ago. She states that at that time she was having diarrhea which stopped with Imodium. But she has had persistent intermittent vomiting since then with increased activity. She denies any blood in her stool hematemesis or coffee-ground emesis. She has had no significant abdominal pain chest pain. She has shortness of breath with a mild cough. She admits to a history of congestive heart failure but denies a history of myocardial infarction. She has hypertension and COPD. She has a past history of diabetes mellitus but they have discontinued her medications stating that her blood sugar is under control with a significant loss of weight. 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 She has never smoked cigarettes but her and father smoke cigarettes and she was exposed to se condhand smoke. She denies drinking alcohol or using any drugs or marijuana. She admits to intermittent fever chills and sweats arm. She states that she has been intermittently dizzy and lightheaded. Related Data Home Medications Medication Instructions Recorded Confirmed carvedilol [Coreg] 1 tab PO BID #0 01/10/17 12/05/18 fluticasone propionate 1 spray INTRANASAL DAILY #0 01/10/17 12/05/18 loratadine 10 mg PO DAILY PRN #0 01/10/17 12/05/18 Lactobacillus acidophilus 1 cap PO BIDWM 03/21/18 12/05/18 [Acidophilus] Nepro Liquid 1 ea PO QPM 03/21/18 12/05/18 T-Relief 1 applic TOPICAL PRN PRN 03/21/18 12/05/18 albuterol sulfate [ProAir HFA] 2 puff INHALATION Q4H PRN 03/21/18 12/05/18 amlodipine 20 mg PO BEDTIME 03/21/18 12/05/18 carica papaya [Papaya Enzyme] 1 tab PO DAILY PRN 03/21/18 12/05/18 cinacalcet [Sensipar] 1 tab PO DAILY 03/21/18 12/05/18 docusate sodium 100 mg PO DAILY 03/21/18 12/05/18 doxazosin 4 mg PO BID 03/21/18 12/05/18 fluticasone propion-salmeterol 1 puff INHALATION BID 03/21/18 12/05/18 [Advair HFA] ibuprofen 200 mg PO Q4H PRN 03/21/18 12/05/18 lidocaine-prilocaine 1 applic TOPICAL 3XW 03/21/18 12/05/18 loperamide 1 dose PO DIRECTED MDD 60 ml 03/21/18 12/05/18 multivitamin [Daily Multi-Vitamin] 1 tab PO DAILY 03/21/18 12/05/18 ondansetron 4 mg PO TID PRN 03/21/18 12/05/18 phenazopyridine 200 mg PO TID PRN MDD 2 days 03/21/18 12/05/18 spironolactone 25 mg PO DAILY 03/21/18 12/05/18 trazodone 25 mg PO BEDTIME 03/21/18 12/05/18 valsartan 1 tab PO BEDTIME 03/21/18 12/05/18 aspirin 81 mg PO DAILY 12/05/18 12/05/18 atorvastatin 40 mg PO DAILY 12/05/18 12/05/18 hydralazine 25 mg PO QID 12/05/18 12/05/18 Previous Rx's Medication Instructions Recorded diphenhydramine HCl [Benadryl] 25 mg PO Q6H PRN #20 cap 11/17/19 hydrocodone-acetaminophen [[place]] 1 tab PO Q6H PRN #10 tab 11/17/19 ondansetron HCl [Zofran] 4 mg PO Q6H PRN #14 tab 11/17/19 Allergies Allergy/AdvReac Type Severity Reaction Status Date / Time Penicillins [PENICILLINS] Allergy Unknown RASH Verified 11/17/19 09:53 Sulfa (Sulfonamide Allergy Unknown RASH Verified 11/17/19 09:53 Antibiotics) [SULFA (SULFONAMIDE ANTIBIOTICS)] aspirin Allergy Verified 11/17/19 09:53 codeine Allergy Verified 11/17/19 09:53 Review of Systems Review of Systems Narrative: REVIEW OF SYSTEMS: CONSTITUTIONAL: Patient has had intermittent fever chills and sweats but none at the present time. NEUROLOGICAL: She denies any previous history of a stroke any headache at this time numbness tingling paresthesias anesthesia is paresis or paralysis. EENT: She has had no sore throat or difficulty in swallowing. CARDIO-PULMONARY: She denies any chest pain has had intermittent shortness of breath with cough that has been nonproductive of any sputum. GASTROINTESTINAL: No abdominal pain nausea and vomiting as described. She has had intermittent diarrhea GENITAL URINARY: The patient does not urinate anymore and is on renal dialysis MUSCULOSKELETAL/ RHEUMATOLOGICAL: She denies any back pain at this time. Patient History Medical History (Updated 11/17/19 @ 13:16 by Quinn Mcfadden MD) Diabetes (Acute) Dialysis patient (Acute) Hyperlipidemia (Acute) Hypertension (Acute) Renal failure (Acute) Social History Smoking Status: Never smoker Smoking Status: Never smoker Exam Narrative Exam Narrative: PHYSICAL EXAM: CONSTITUTIONAL: Awake, Alert, Oriented, Coherent, Cooperative in NAD. The patient is pale. HEAD: AT/NC EENT: PERRL, FROM of eyes, no discharge, no nystagmus the patient's conjunctiva are pale NECK: Supple, no obvious JVD, Trachea is midline without stridor, no palpable LN. SPINE: Palpationof the cervical, Thoracic, Lumbar or Sacral spine reveals no gross deformity or tenderness. No CVA tenderness. THORAX: No deformity, retractions, chest wall tenderness. LUNGS: The patient has inspiratory crackles and expiratory rhonchi arm greater on the right posterior lungs than on the left. HEART: Normal heart tones, regular rhythm and rate with a grade 2/6 systolic m urmur along the left sternal border heard more prominently over the 2nd right intercostal space in may represent aortic stenosis. ABDOMEN: Soft, non-tender, without guarding, rebound, rigidity or palpable mass. EXTREMITIES: No edema, deformity, tenderness or cyanosis. She has a dialysis shunt in her mood right forearm SKIN: No rash, bruising, petechiae or purpura. NEURO: Awake, alert, oriented, conversive, cranial nerves II-XII are symmetrical , moves all 4 extremities and is ambulatory. Initial Vital Signs Initial Vital Signs: Vital Signs Temperature 98.1 F 11/17/19 09:43 Pulse Rate 60 11/17/19 09:43 Respiratory Rate 14 11/17/19 09:43 Blood Pressure 136/63 11/17/19 09:43 Pulse Oximetry 94 11/17/19 09:43 Course Course Course Narrative: 1138: The patient's EKG reveals a sinus rhythm with a ventricular rate of 61. The patient's MI interval is 222 milliseconds consistent with a first-degree AV block. The patient has left ventricular hypertrophy by voltage criteria. Patient has a right bundle branch block pattern with a QRS of 154 milliseconds. The patient's QTC is slightly prolonged at 466 milliseconds. She has a marked right axis deviation. She has Q-wave in lead 3 III. She has an inverted T-wave in lead V1 which is consistent with her right bundle branch block. She has slightly elevated ST segment in V2. The Q- waves in lead V1 and V2 are not significant. There is a Q-wave in lead III with inverted T-waves. There are no other acute diagnostic ST segment changes to suggest ischemia or infarct. 1214: The patient's the patient's lipase is elevated at 572 and this is probably the cause of her pain and discomfort and vomiting she probably has pancreatitis. 1220: The patient has minimal tenderness in the epigastrium and right upper quadrant. She states that she has not had her gallbladder removed. Since being here in the emergency department she has not vomited. Her lipase is elevated and consistent with pancreatitis. Will check an ultrasound of her gallbladder bladder to rule out gallstones as a cause. She is not having any pain or dis comfort requiring any analgesics at this time. 1247: The biomedical engineering technologist informed me that the patient does have some small gallstones and that the common bile duct looks normal and is not dilated. Her pancreatic duct is mildly dilated. I explained this to the patient and the patient has been asymptomatic since she has been here in the emergency department. She will be discharged home with a rescue analgesics and an anti emetic for nausea and vomiting. She was informed that if she develops u ncontrolled nausea and vomiting despite medication she needs to return to the emergency department. She was also informed that if she develops uncontrolled pain with fever she needs to return to the emergency department she understood these instructions. She was informed to advance her diet as tolerated. Orders Ordered: ED Orders 11/17/19 10:40 Complete Blood Count AUTO DIFF Stat Comprehensive Metabolic Panel Stat Lactate (Lactic Acid) Stat Lactate Dehydrogenase Stat Lipase Stat Magnesium Stat Phosphorous Stat 11/17/19 10:55 XR chest 1V Stat EKG-12 Lead Stat 11/17/19 12:21 US abdomen limited Stat Discontinued Medications Sodium Chloride (Normal Saline 0.9%) 1,000 mls @ 125 mls/hr IV CONT FREDERICK Last Infusion: 11/17/19 13:22 Dose: 0 mls/hr Documented by: Admin: 11/17/19 11:29 Dose: 125 mls/hr Documented by: YENNY Vital Signs Vital signs: Vital Signs - 8 hr 11/17/19 11:30 11/17/19 11:40 11/17/19 13:23 Pulse Rate 59 L 60 Pulse Rate [Orthostatic Lying] 59 L Pulse Rate [Orthostatic Sitting] 59 L Pulse Rate [Orthostatic Standing] 61 Respiratory Rate 16 Blood Pressure 163/70 H Blood Pressure [Orthostatic Lying] 156/67 H Blood Pressure [Orthostatic Sitting] 147/67 H Blood Pressure [Orthostatic Standing] 109/53 L Blood Pressure [Right Arm] 109/53 L Pulse Oximetry 92 94 MDM - Nausea/Vomiting/Diarrhea Lab Data Result diagrams: 11/17/19 10:40 11/17/19 10:40 Labs: Lab Results 11/17/19 11/17/19 11/17/19 Range/Units 10:40 10:40 10:40 WBC 9.1 (4.5-11.0) X10^3/uL RBC 3.28 L (4.0-5.2) X10^6/uL Hgb 11.3 L (12.0-16.0) g/dL Hct 33.1 L (36-46) % MCV 101.1 H (80-100) fL MCH 34.5 H (26-34) PG MCHC 34.1 (30-36) % RDW 13.7 (11.6-14.8) % Plt Count 368 (150-400) X10^3/uL Neut % (Auto) 81.8 H (50-75) % Lymph % (Auto) 10.7 L (25-40) % [place] % (Auto) 5.9 (3-14) % Eos % (Auto) 0.7 L (2-4) % Baso % (Auto) 0.9 (0-2) % Neut # (Auto) 7400 H (9026-2524) /uL Lymph # (Auto) 1000 L (3077-9652) /uL [place] # (Auto) 500 (0-900) /uL Eos # (Auto) 100 (0-450) /uL Baso # (Auto) 100 (0-100) /uL Sodium 133 L (137-145) mmol/L Potassium 5.1 (3.4-5.1) mmol/L Chloride 85 L (98-107) mmol/L Carbon Dioxide 32 (22-32) mmol/L BUN 62 H (7-17) mg/dL Creatinine 6.08 H (0.52-1.04) mg/dL Estimated GFR 6.6 L (>60) mL/min BUN/Creatinine Ratio 10.2 (6-22) Glucose 242 H (80-110) mg/dL Lactate 0.7 (0.7-2.1) mmol/L Calcium 9.1 (8.4-10.2) mg/dL Phosphorus 8.9 H (2.8-4.1) mg/dL Magnesium 2.5 H (1.6-2.3) mg/dL Total Bilirubin 0.6 (0.2-1.3) mg/dL AST 26 (14-36) IU/L ALT 15 (<35) IU/L Alkaline Phosphatase 78 (38-126) U/L Lactate Dehydrogenase 347 (313-618) U/L Total Protein 7.3 (6.3-8.2) g/dL Albumin 4.0 (3.5-5.0) g/dL Globulin 3.3 (1.7-4.1) g/dL Albumin/Globulin Ratio 1.2 (1.0-2.8) Lipase 572 H (23-300) U/L Discharge Plan Departure Patient Disposition: Home Clinical Impression: Gallstones, Nausea, Vomiting, and Diarrhea, Atelectasis of both lungs, Pleural effusion, bilateral Acute pancreatitis Qualifiers: Pancreatitis type: unspecified pancreatitis type Acute pancreatitis c omplication: unspecified Qualified Code(s): K85.90 - Acute pancreatitis without necrosis or infection, unspecified Renal failure, chronic Qualifiers: Chronic kidney disease stage: stage 5 Qualified Code(s): N18.5 - Chronic kidney disease, stage 5 Discharge Date/Time: 11/17/19 13:23 Instructions: DI for Pancreatitis, DI for Dehydration -- Adult, DI for Gallstones, DI for Nausea -- Adult, DI for Vomiting -- Adult Activity Restrictions/Additional Instructions: 1. Your laboratory chemistries revealed that you had an elevated lipase which is consistent with pancreatitis. As a result I did had an ultrasound of her gallbladder performed which reveals that you have gallstones. This will cause pancreatitis. You can developed pain and discomfort with persistent nausea and vomiting after eating. You can advanced her diet as tolerated. 2. You can continue your dialysis as scheduled. 3. You need to follow-up with your primary care physician to further evaluate your pancreatitis and gallstones. This follow-up will determine how to proceed with further evaluation and possible therapy. You can help by keeping a log or diarrhea of upper abdominal epigastric gastric pain and discomfort with nausea and vomiting as well as diarrhea. 4. Use the Zofran as prescribed for nausea and vomiting. If this does not work you can try taking Benadryl 1-2 capsules every 6 hours along with the Zofran for nausea and vomiting. If you develop uncontrolled nausea and vomiting you need to return to the emergency department. If this is associated with a fever or worsening abdominal pain you need to return to the emergency department. Use the medications as prescribed for your discomfort management. 5. Start off with a clear liquid diet and advance her diet as tolerated. Prescriptions: New hydrocodone-acetaminophen [[place]] 5-325 mg tablet 1 tab PO Q6H PRN (Reason: pain) Qty: 10 RF: 0 ondansetron HCl [Zofran] 4 mg tablet 4 mg PO Q6H PRN (Reason: nausea and vomiting) Qty: 14 RF: 0 diphenhydramine HCl [Benadryl] 25 mg capsule 25 mg PO Q6H PRN (Reason: nausea and vomiting) Qty: 20 RF: 0 No Action carvedilol [Coreg] 12.5 MG tablet 1 tab PO BID Qty: 0 RF: 0 fluticasone propionate 16 GM spray,suspension 1 spray Intranasal DAILY Qty: 0 RF: 0 loratadine 10 MG tablet 10 mg PO DAILY PRN (Reason: Congestion) Qty: 0 RF: 0 trazodone 50 mg tablet 25 mg PO BEDTIME RF: 0 spironolactone 25 mg tablet 25 mg PO DAILY RF: 0 amlodipine 10 mg tablet 20 mg PO BEDTIME RF: 0 valsartan 320 mg tablet 1 tab PO BEDTIME RF: 0 doxazosin 4 mg tablet 4 mg PO BID RF: 0 albuterol sulfate [ProAir HFA] 90 mcg/actuation HFA aerosol inhaler 2 puff Inhalation Q4H PRN (Reason: cough,wheeze,shortness of candis) RF: 0 Advair HFA 230-21 mcg/actuation Hfa Aerosol Inhaler 1 puff Inhalation BID RF: 0 multivitamin [Daily Multi-Vitamin] Tablet 1 tab PO DAILY RF: 0 lidocaine-prilocaine 2.5-2.5 % Cream 1 applic Topical 3XW RF: 0 docusate sodium 100 mg Capsule 100 mg PO DAILY RF: 0 carica papaya [Papaya Enzyme] Tablet 1 tab PO DAILY PRN (Reason: supplement) RF: 0 loperamide 1 mg/5 mL Liquid 1 dose PO DIRECTED MDD 60 ml RF: 0 phenazopyridine 100 mg Tablet 200 mg PO TID MDD 2 days PRN (Reason: urinary pain) RF: 0 ibuprofen 200 mg Tablet 200 mg PO Q4H PRN (Reason: pain) RF: 0 Lactobacillus acidophilus [Acidophilus] Capsule 1 cap PO BIDWM RF: 0 ondansetron 4 mg Tablet,Disintegrating 4 mg PO TID PRN (Reason: Nausea) RF: 0 cinacalcet [Sensipar] 30 mg Tablet 1 tab PO DAILY RF: 0 Nepro Liquid 1 ea PO QPM RF: 0 T-Relief cream 1 applic Topical PRN PRN (Reason: pain) RF: 0 atorvastatin 40 mg tablet 40 mg PO DAILY RF: 0 hydralazine 25 mg tablet 25 mg PO QID RF: 0 aspirin 81 mg Tablet,Delayed Release (Dr/Ec) 81 mg PO DAILY RF: 0 Referrals: Fuentes Singleton MD [Primary Care Provider] -
--- NOTE | 2019-11-17 10:55 | DI.RAD.S_ITS ---
PROCEDURE: XR CHEST 1V INDICATIONS: renal failure, dialysis persistent vomiting TECHNIQUE: One view of the chest was acquired. COMPARISON: [facility], CR, XR CHEST 1V, 12/05/2018, 9:10. [facility], CR, XR CHEST 1V, 03/21/2018, 8:01. FINDINGS: Surgical changes and devices: None. Lungs and pleura: Lungs are improved with a reduction in mild pulmonary edema and a reduction in the subpulmonic right pleural effusion now [id number] in size. No left-sided pleural effusions or pneumothorax. Mediastinum: Mediastinal contours appear normal. Heart size is globally enlarged, moderately. Bones and chest wall: No suspicious bony lesions. Overlying soft tissues appear unremarkable. IMPRESSION: Chronic CHF pattern with global cardiomegaly. Improving subpulmonic right pleural effusion. Dictated by: Anupam Villatoro M.D. on 11/17/2019 at 11:43 Approved by: Anupam Villatoro M.D. on 11/17/2019 at 11:44
[2019-11-17 11:06] LABS: Add Manual Diff / Slide Review NO; Basophils Absolute Auto 100 /uL (0-100); Basophils Percent Auto 0.9 % (0-2); Eosinophils Absolute Auto 100 /uL (0-450); Eosinophils Percent Auto 0.7 % (2-4); Hematocrit 33.1 % (36-46); Hemoglobin 11.3 g/dL (12.0-16.0); Lymphocytes Absolute Auto 1000 /uL (1100-4500); Lymphocytes Percent Auto 10.7 % (25-40); Mean Corpuscular HGB Conc 34.1 % (30-36); Mean Corpuscular Hemoglobin 34.5 PG (26-34); Mean Corpuscular Volume 101.1 fL (80-100); Monocytes Absolute Auto 500 /uL (0-900); Monocytes Percent Auto 5.9 % (3-14); Neutrophils Absolute Auto 7400 /uL (1500-7000); Neutrophils Percent Auto 81.8 % (50-75); Platelet Count 368 X10^3/uL (150-400); Red Blood Cell Count 3.28 X10^6/uL (4.0-5.2); Red Cell Distribution Width 13.7 % (11.6-14.8); White Blood Cell Count 9.1 X10^3/uL (4.5-11.0)
[2019-11-17 11:11] LABS: Lactate (Lactic Acid) 0.7 mmol/L (0.7-2.1)
[2019-11-17 11:12] LABS: Alanine Aminotransferase 15 IU/L (<35); Albumin Globulin Ratio 1.2 (1.0-2.8); Alkaline Phosphatase 78 U/L (38-126); Aspartate Aminotransferase 26 IU/L (14-36); BUN Creatinine Ratio 10.2 (6-22); Bilirubin Total 0.6 mg/dL (0.2-1.3); Blood Urea Nitrogen 62 mg/dL (7-17); Calcium 9.1 mg/dL (8.4-10.2); Carbon Dioxide 32 mmol/L (22-32); Chloride 85 mmol/L (98-107); Estimated Glomerular Filt Rate 6.6 mL/min (>60); Globulin 3.3 g/dL (1.7-4.1); Glucose 242 mg/dL (80-110); HEMOLYSIS < 15 (0-50); Lactate Dehydrogenase 347 U/L (313-618); Lipase 572 U/L (23-300); Magnesium 2.5 mg/dL (1.6-2.3); Phosphorous 8.9 mg/dL (2.8-4.1); Potassium 5.1 mmol/L (3.4-5.1); Sodium 133 mmol/L (137-145); Total Protein 7.3 g/dL (6.3-8.2)
[2019-11-17] MEDS: SODIUM CHLORIDE 0.9% 1,000 ML 125 ML IV (11:29)
[2019-11-17 11:30] VITALS: BP 109/53; PULSE 59; RESP 16; O2SAT 92
[2019-11-17 11:40] VITALS: BP 109/53; BP 147/67; BP 156/67; PULSE 59; PULSE 61
--- NOTE | 2019-11-17 12:21 | DI.US.S_ITS ---
PROCEDURE: US ABDOMEN LIMITED INDICATIONS: persistent vomiting with pancreatitis r/o gallstones TECHNIQUE: Real-time focused scanning was performed of the abdomen, with image documentation. COMPARISON: [facility], CR, XR CHEST 1V, 11/17/2019, 11:14. FINDINGS: The liver is normal in size and echotexture. The gallbladder contains stones, approximately 3, measuring approximately 4 mm in diameter. The gallbladder wall is not abnormally thickened at 1.3 mm. No abnormal adjacent free fluid or tenderness during sonographic palpation is found. Note is made of mild prominence of the common bile duct at the 9 mm. The pancreatic duct is slightly prominent at 3.5 mm. There is a partially visualized right sided small pleural effusion, also seen on prior chest plain film imaging from today with cardiomegaly. IMPRESSION: Small gallstones within the gallbladder lumen are present, of a size that easily good transit from the lumen into the cystic duct or common duct. This might represent the source of reported acute pancreatitis. No acute cholecystitis is suspected. Dictated by: Anupam Villatoro M.D. on 11/17/2019 at 12:56 Approved by: Anupam Villatoro M.D. on 11/17/2019 at 12:58
[2019-11-17 13:23] VITALS: BP 163/70; PULSE 60; O2SAT 94
== END 2019-11-17 13:23 | disposition home or self-care (01) ==
PROVIDERS: Emergency Provider Emergency Medicine; Family Provider Internal Medicine; PCP Internal Medicine
DX: K85.90 Acute pancreatitis without necrosis or infection, unspecified (principal); I12.0 Hypertensive chronic kidney disease with stage 5 chronic kidney disease or end stage renal disease; E11.22 Type 2 diabetes mellitus with diabetic chronic kidney disease; N18.5 Chronic kidney disease, stage 5; Z99.2 Dependence on renal dialysis; K80.20 Calculus of gallbladder without cholecystitis without obstruction; R11.2 Nausea with vomiting, unspecified; R19.7 Diarrhea, unspecified; J98.11 Atelectasis; J90 Pleural effusion, not elsewhere classified; J44.9 Chronic obstructive pulmonary disease, unspecified; I50.9 Heart failure, unspecified
CPT/HCPCS: 36415; 51798; 71045; 76705; 80053; 83605; 83615; 83690; 83735; 84100; 85025; 93005; 93010; 96360; 96361; 99284

== ENCOUNTER 2020-02-12 09:52 | Emergency (ER) | payer MEDICARE, OTHER, SELFPAY ==
[2020-02-12] VITALS (19 sets, daily range): BP systolic 107–157; BP diastolic 49–80; PULSE 57–61; RESP 16; TEMP 36.6; O2SAT 88–99
--- NOTE | 2020-02-12 10:20 | ED_ITS ---
HPI - Fall General Chief Complaint: Fall Stated Complaint: Fall yesterday Time Seen by Provider: 02/12/20 10:10 Source: patient and EMS Mode of arrival: EMS History of Present Illness HPI Narrative: 84-year-old dialysis patient who lives in an assisted living facility fell yesterday morning at 5:30 a.m.. She describes getting up to go to the bathroom taking 2 steps and then falling landing on her left hip. She was able to activate her call button and staff helped her into her chair. She was able to stand and pivot to the chair but was not able to walk with out significant assistance for the rest of the day. When she awoke this morning the pain was increasing. She is due for dialysis today. She notes left hip pain with minimal movement and has no other complaints at this time. Related Data Home Medications Medication Instructions Recorded Confirmed carvedilol [Coreg] 1 tab PO BID #0 01/10/17 12/05/18 fluticasone propionate 1 spray INTRANASAL DAILY #0 01/10/17 12/05/18 loratadine 10 mg PO DAILY PRN #0 01/10/17 12/05/18 Lactobacillus acidophilus 1 cap PO BIDWM 03/21/18 12/05/18 [Acidophilus] Nepro Liquid 1 ea PO QPM 03/21/18 12/05/18 T-Relief 1 applic TOPICAL PRN PRN 03/21/18 12/05/18 albuterol sulfate [ProAir HFA] 2 puff INHALATION Q4H PRN 03/21/18 12/05/18 amlodipine 20 mg PO BEDTIME 03/21/18 12/05/18 carica papaya [Papaya Enzyme] 1 tab PO DAILY PRN 03/21/18 12/05/18 cinacalcet [Sensipar] 1 tab PO DAILY 03/21/18 12/05/18 docusate sodium 100 mg PO DAILY 03/21/18 12/05/18 doxazosin 4 mg PO BID 03/21/18 12/05/18 fluticasone propion-salmeterol 1 puff INHALATION BID 03/21/18 12/05/18 [Advair HFA] ibuprofen 200 mg PO Q4H PRN 03/21/18 12/05/18 lidocaine-prilocaine 1 applic TOPICAL 3XW 03/21/18 12/05/18 loperamide 1 dose PO DIRECTED MDD 60 ml 03/21/18 12/05/18 multivitamin [Daily Multi-Vitamin] 1 tab PO DAILY 03/21/18 12/05/18 ondansetron 4 mg PO TID PRN 03/21/18 12/05/18 phenazopyridine 200 mg PO TID PRN MDD 2 days 03/21/18 12/05/18 spironolactone 25 mg PO DAILY 03/21/18 12/05/18 trazodone 25 mg PO BEDTIME 03/21/18 12/05/18 valsartan 1 tab PO BEDTIME 03/21/18 12/05/18 aspirin 81 mg PO DAILY 12/05/18 12/05/18 atorvastatin 40 mg PO DAILY 12/05/18 12/05/18 hydralazine 25 mg PO QID 12/05/18 12/05/18 Previous Rx's Medication Instructions Recorded diphenhydramine HCl [Benadryl] 25 mg PO Q6H PRN #20 cap 11/17/19 hydrocodone-acetaminophen [[place]] 1 tab PO Q6H PRN #10 tab 11/17/19 ondansetron HCl [Zofran] 4 mg PO Q6H PRN #14 tab 11/17/19 docusate sodium 100 mg PO DAILY #30 cap 02/12/20 hydrocodone-acetaminophen [[place]] 1 tab PO Q6H PRN #14 tab 02/12/20 Allergies Allergy/AdvReac Type Severity Reaction Status Date / Time Penicillins [PENICILLINS] Allergy Unknown RASH Verified 11/17/19 09:53 Sulfa (Sulfonamide Allergy Unknown RASH Verified 11/17/19 09:53 Antibiotics) [SULFA (SULFONAMIDE ANTIBIOTICS)] aspirin Allergy Verified 11/17/19 09:53 codeine Allergy Verified 11/17/19 09:53 Review of Systems Review of Systems Narrative: Pertinent positive and negative findings as per HPI Remainder of review of systems is otherwise unremarkable for Constitutional: Fevers, chills ENT: No sore throat, neck pain, ear pain CV: Chest pain, palpitations, dyspnea on exertion Respiratory: Cough, wheeze, dyspnea GI: Nausea, vomiting, diarrhea, change in bowel habits, black or bloody stools : Dysuria, hematuria, flank pain Patient History Medical History Diabetes (Acute) Dialysis patient (Acute) Hyperlipidemia (Acute) Hypertension (Acute) Renal failure (Acute) Social History household members: none Smoking Status: Never smoker Smoking Status: Never smoker Substance Use Type: does not use Exam Narrative Exam Narrative: General: Frail-appearing, in no acute distress. Able to give a complete and coherent history. HEENT: Moist mucous membranes, normal sclera with reactive pupils, Neck: No JVD, supple, Respiratory: Lungs are clear to auscultation, no wheezing no rales no rhonchi. Full and symmetrical air movement Chest: No bruising, contusions no tenderness with palpation of chest wall Cardiac: Regular rate and rhythm no murmurs no bruits Abdomen: Soft nontender good bowel tones, no flank pain Skin: Warm and dry, no rashes Spine: No tenderness to palpation along the cervical thoracic lumbar spine or sacrum. No tenderness with pelvic ring compression Neurologic: Grossly neurologically intact with no obvious asymmetries or abnormalities Extremities: well perfused, significantly tender over the left greater trochanter without significant bruising. She does have some contusion over the knee and anterior mcconnell from the fall yesterday Psych: Cooperative, appropriate insight and affect Initial Vital Signs Initial Vital Signs: Vital Signs Temperature 97.9 F 02/12/20 10:06 Pulse Rate 61 02/12/20 10:06 Respiratory Rate 16 02/12/20 10:06 Blood Pressure 137/60 02/12/20 10:06 Pulse Oximetry 96 02/12/20 10:06 Course Orders Ordered: ED Orders 02/12/20 10:09 EKG-12 Lead Routine 02/12/20 10:30 XR hip w pel if done LT 2V Stat 02/12/20 11:14 CT pelvis wo con Stat 02/12/20 14:09 Consult to Physical Therapy Evaluate & Treat 02/12/20 15:50 Basic Metabolic Panel Stat Discontinued Medications Hydrocodone Bitart/Acetaminophen ([place] 10/325) 1 tab PO NOW ONE Stop: 02/12/20 10:57 Last Admin: 02/12/20 11:42 Dose: Not Given Documented by: LONI Hydrocodone Bitart/Acetaminophen ([place] 5/325) 2 tab PO NOW ONE Stop: 02/12/20 11:41 Last Admin: 02/12/20 11:49 Dose: 2 tab Documented by: LONI Vital Signs Vital signs: Vital Signs - 8 hr 02/12/20 11:05 02/12/20 11:30 02/12/20 12:00 Temperature Pulse Rate 59 L 58 L 60 Respiratory Rate Blood Pressure Pulse Oximetry 96 98 96 02/12/20 12:30 02/12/20 13:00 02/12/20 13:30 Temperature Pulse Rate 59 L 59 L 59 L Respiratory Rate Blood Pressure Pulse Oximetry 99 99 98 02/12/20 13:44 02/12/20 14:00 02/12/20 14:17 Temperature Pulse Rate 60 58 L 59 L Respiratory Rate 16 Blood Pressure 133/63 128/58 L 131/63 Pulse Oximetry 93 96 97 02/12/20 14:33 02/12/20 15:00 02/12/20 15:30 Temperature Pulse Rate 57 L 57 L Respiratory Rate Blood Pressure 128/62 139/80 157/70 H Pulse Oximetry 94 94 02/12/20 16:00 02/12/20 16:01 02/12/20 16:30 Temperature Pulse Rate 61 60 59 L Respiratory Rate Blood Pressure 111/53 L 107/49 L Pulse Oximetry 88 L 93 98 02/12/20 17:36 Temperature 97.8 F Pulse Rate 60 Respiratory Rate 16 Blood Pressure 109/52 L Pulse Oximetry 93 MDM - Fall Medical Records Attestation: I reviewed the patient's medical records. Lab Data Attestation: I reviewed the patient's lab results. Result diagrams: 02/12/20 15:50 Labs: Lab Results 02/12/20 Range/Units 15:50 Sodium 133 L (137-145) mmol/L Potassium 4.1 (3.4-5.1) mmol/L Chloride 91 L (98-107) mmol/L Carbon Dioxide 33 H (22-32) mmol/L BUN 43 H (7-17) mg/dL Creatinine 6.80 H (0.52-1.04) mg/dL Estimated GFR 5.8 L (>60) mL/min BUN/Creatinine Ratio 6.3 (6-22) Glucose 162 H (80-110) mg/dL Calcium 7.9 L (8.4-10.2) mg/dL Imaging Data pelvis CT: Radiologist's Impression: IMPRESSION: 1. No hip fracture or dislocation. 2. Possible nondisplaced fracture of the left inferior pubic ramus. 3. Enthesopathy at the hamstring tendon insertions. 3. Diverticulosis without acute diverticulitis. 4. Severe atherosclerosis. 5. Nonobstructive right renal calculi. Dictated by: Everette Galindo M.D. on 02/12/2020 at 12:14 Hip x-ray: Radiologist's Impression: IMPRESSION: No displaced fractures can be seen on these plain films. Moderate hip degenerative change is noted. Dictated by: Jerrod Gutierrez M.D. on 02/12/2020 at 10:56 ECG Data Attestation: I personally reviewed and interpreted this ECG as follows: Interpretation: Sinus Daniel a rate of 59 Right axis deviation and right bundle branch block No acute ischemic changes MDM Narrative Medical decision making narrative: 84-year-old woman with a fall over 24 hours ago with a possible nondisplaced left inferior pubic ramus fracture with out hip fracture. Based on her increased pain and difficulty walking I suspect that this is in fact pelvic ring fracture. Will ask physical therapy to evaluate the patient to see with adequate pain control she is able to return to her assisted living setting 230 physical therapy evaluation: With appropriate pain control and her usual walker use the feel she is very safe to return to an assisted living setting Family called and wanted to make sure that there is a definitive plan for dealing with her dialysis. I have spoken with Dr. Moffett, one of Dr. Zapata's partners. His recommendation was to draw the basic metabolic panel and as long as potassium was reasonable and she was not dramatically acidotic that it would be safe and reasonable to simply skip Wednesday's dialysis and have her return to her usual schedule on Wednesday. BMP has been ordered. Discharge Plan Departure Patient Disposition: Home Clinical Impression: Closed fracture of pubic ramus Qualifiers: Encounter type: initial encounter Laterality: left Qualified Code(s): S32.592A - Other specified fracture of left pubis, initial encounter for closed fracture Discharge Date/Time: 02/12/20 17:36 Activity Restrictions/Additional Instructions: Thank you for coming in today You have a small crack in the left pubic rami (the Sitz bone). This will heal nicely and there is nothing that you need to do specifically. It is important to keep the pain moderately controlled and to make sure that you are getting up and move. Using Tylenol for moderate pain will be helpful and does severe pain you can take 1 Tylenol with 1 of the hydrocodone tablets. If you take any hydrocodone (a narcotic) please also take 1 of the stool softeners (docusate) to prevent constipation. You were seen and evaluated by physical therapy in the emergency department and they felt that continuing to use your walker and returning to your assisted living facility is safe and appropriate I have talked with your software specialist. With basic blood work that was done in the emergency department today, it is safe to simply skip your Wednesday dialysis and resume on Wednesday as scheduled. Prescriptions: New hydrocodone-acetaminophen [[place]] 5-325 mg tablet 1 tab PO Q6H PRN (Reason: pain) Qty: 14 RF: 0 docusate sodium 100 mg capsule 100 mg PO DAILY Qty: 30 RF: 0 No Action carvedilol [Coreg] 12.5 MG tablet 1 tab PO BID Qty: 0 RF: 0 fluticasone propionate 16 GM spray,suspension 1 spray Intranasal DAILY Qty: 0 RF: 0 loratadine 10 MG tablet 10 mg PO DAILY PRN (Reason: Congestion) Qty: 0 RF: 0 hydrocodone-acetaminophen [[place]] 5-325 mg tablet 1 tab PO Q6H PRN (Reason: pain) Qty: 10 RF: 0 ondansetron HCl [Zofran] 4 mg tablet 4 mg PO Q6H PRN (Reason: nausea and vomiting) Qty: 14 RF: 0 diphenhydramine HCl [Benadryl] 25 mg capsule 25 mg PO Q6H PRN (Reason: nausea and vomiting) Qty: 20 RF: 0 trazodone 50 mg tablet 25 mg PO BEDTIME RF: 0 spironolactone 25 mg tablet 25 mg PO DAILY RF: 0 amlodipine 10 mg tablet 20 mg PO BEDTIME RF: 0 valsartan 320 mg tablet 1 tab PO BEDTIME RF: 0 doxazosin 4 mg tablet 4 mg PO BID RF: 0 albuterol sulfate [ProAir HFA] 90 mcg/actuation HFA aerosol inhaler 2 puff Inhalation Q4H PRN (Reason: cough,wheeze,shortness of candis) RF: 0 Advair HFA 230-21 mcg/actuation Hfa Aerosol Inhaler 1 puff Inhalation BID RF: 0 multivitamin [Daily Multi-Vitamin] Tablet 1 tab PO DAILY RF: 0 lidocaine-prilocaine 2.5-2.5 % Cream 1 applic Topical 3XW RF: 0 docusate sodium 100 mg Capsule 100 mg PO DAILY RF: 0 carica papaya [Papaya Enzyme] Tablet 1 tab PO DAILY PRN (Reason: supplement) RF: 0 loperamide 1 mg/5 mL Liquid 1 dose PO DIRECTED MDD 60 ml RF: 0 phenazopyridine 100 mg Tablet 200 mg PO TID MDD 2 days PRN (Reason: urinary pain) RF: 0 ibuprofen 200 mg Tablet 200 mg PO Q4H PRN (Reason: pain) RF: 0 Lactobacillus acidophilus [Acidophilus] Capsule 1 cap PO BIDWM RF: 0 ondansetron 4 mg Tablet,Disintegrating 4 mg PO TID PRN (Reason: Nausea) RF: 0 cinacalcet [Sensipar] 30 mg Tablet 1 tab PO DAILY RF: 0 Nepro Liquid 1 ea PO QPM RF: 0 T-Relief cream 1 applic Topical PRN PRN (Reason: pain) RF: 0 atorvastatin 40 mg tablet 40 mg PO DAILY RF: 0 hydralazine 25 mg tablet 25 mg PO QID RF: 0 aspirin 81 mg Tablet,Delayed Release (Dr/Ec) 81 mg PO DAILY RF: 0 Referrals: Fuentes Singleton MD [Primary Care Provider] -
--- NOTE | 2020-02-12 10:30 | DI.RAD.S_ITS ---
PROCEDURE: XR HIP W PEL IF DONE LT 2V INDICATIONS: fall, left hip pain TECHNIQUE: AP pelvis with lateral view(s) of the left hip(s). COMPARISON: None. FINDINGS: Bones: No fractures or dislocations. Pelvic ring appears intact. No suspicious bony lesions. There is moderate superior joint space narrowing seen of both hips, with associated remodeling changes with subchondral sclerosis and osteophyte formation. Soft tissues: The visualized bowel gas pattern is normal. No suspicious soft tissue calcifications. Atherosclerotic calcification is noted. IMPRESSION: No displaced fractures can be seen on these plain films. Moderate hip degenerative change is noted. Dictated by: Jerrod Gutierrez M.D. on 02/12/2020 at 10:56 Approved by: Jerrod Gutierrez M.D. on 02/12/2020 at 10:57
--- NOTE | 2020-02-12 10:31 | PC.NURSE ---
bruising noted on left knee as well.
--- NOTE | 2020-02-12 11:14 | DI.CT.S_ITS ---
PROCEDURE: CT PEL WO CON INDICATIONS: concern for L hip fracture, unable to bear weight TECHNIQUE: Noncontrast 3 mm axial sections acquired through the bony pelvis, with coronal and sagittal reformatting. COMPARISON: [facility], CR, XR HIP W PEL IF DONE LT 2V, 02/12/2020, 10:39. FINDINGS: Image quality: Excellent. Bones: No fracture or dislocation is left hip. Subtle lucency of the left inferior pubic ramus, suspicious for nondisplaced fracture. There is periosteal reaction along the superior pubic rami bilaterally. Soft tissues: There is calcification at hamstring insertions bilaterally, consistent with enthesopathy. Extensive colonic diverticulosis. No acute diverticulitis. Noncalcified right renal calculi are noted in the inferior pole of the right kidney. There is severe atherosclerosis. IMPRESSION: 1. No hip fracture or dislocation. 2. Possible nondisplaced fracture of the left inferior pubic ramus. 3. Enthesopathy at the hamstring tendon insertions. 3. Diverticulosis without acute diverticulitis. 4. Severe atherosclerosis. 5. Nonobstructive right renal calculi. Dictated by: Everette Glaindo M.D. on 02/12/2020 at 12:14 Approved by: Everette Galindo M.D. on 02/12/2020 at 12:26
[2020-02-12] MEDS: HYDROCODONE/ACET 5/325 TABLET 2 TAB PO (11:49)
--- NOTE | 2020-02-12 13:59 | PC.NURSE ---
Spoke with daughter in law on phone. Pt usually received dialysis treatment at [facility] in [place] M/W/F from 10am-3pm. Would like this addressed and plan ptd. Provider notified.
--- NOTE | 2020-02-12 14:26 | PC.NURSE ---
Pt up with walker with political science research assistant.
--- NOTE | 2020-02-12 14:45 | PT.IIE ---
Medical History (Last Reviewed 02/12/20 @ 10:29 by Nyla Hall MD) Diabetes (Acute) Dialysis patient (Acute) Hyperlipidemia (Acute) Hypertension (Acute) Renal failure (Acute) Physical Therapy Inpatient Evaluation/Re-Eval M1 PT/OT-IP Prior Functional Status Start: 02/12/20 13:55 Freq: Status: Active Protocol: Document 02/12/20 14:40 AW (Rec: 02/12/20 15:35 AW [email or web address]) Medical Review Prior Functional Status Medical History Reviewed Yes Communication No known deficits. Pt is an effective verbal communicator. Mobility and Gait Pt uses a 4WW for up to ~50 feet ambulation at her [facility]. She typically has SBA for mobility. She uses a wheelchair propelled by facility staff for longer distances, including at hemodialysis appointments on MWF. Activities of Daily Living and IADL's Pt has facility assist with all ADL's and receives meals in her room Social History Household Members none Living Arrangements Assisted Living Number of Floors (Floors) 3 or More Floors Number of Stairs To Enter/Railing? Pt lives on the 3rd floor at [facility] in [place]. She uses an elevator to access her room. Home Environment High Toilet,Walk in Shower, Built-In Shower Seat,Elevator Home Equipment Four Wheel Walker,Manual Wheelchair Additional Social History Comment Pt has lived with her cat at [facility] in [place] for years. M2 PT-IP Current Condition Start: 02/12/20 13:55 Freq: Status: Active Protocol: Document 02/12/20 14:40 AW (Rec: 02/12/20 15:35 AW [email or web address]) Physical Therapy Current Condition Current Condition Evaluation Date 02/12/20 Treatment Diagnosis non-displaced pubic ramus fracture (L); difficulty in walking Onset Date 02/12/20 M3 PT-IP Subjective Start: 02/12/20 13:55 Freq: Status: Active Protocol: Document 02/12/20 14:40 AW (Rec: 02/12/20 15:35 AW [email or web address]) Subjective Physical Therapy Visit Type Type Initial Evaluation Visit Start Time 14:05 Visit Stop Time 14:37 Total Visit Minutes 32 Notes Pt seen in ED to evaluate safety of return to [facility]. Pt had received [place] at 1142. Physical Therapy Visit Comments Patient Comments I feel better since I took that medicine. Patient Goals Return to [facility] Therapy Pain Assessment Pain When Pain Assessed During Mobility Pain Present Pain Present Pain Reported Location Left Hip Scale Used not quantified Description With Movement Pain Behaviors Guarding,Wincing Pain Management Techniques Re-positioning,Timing of Activity with Medications M4 PT-IP Mobility and Gait Start: 02/12/20 13:55 Freq: Status: Active Protocol: Document 02/12/20 14:40 AW (Rec: 02/12/20 15:35 AW [email or web address]) PT-Bed Mobility Assessment Supine to Sit Supine to Sit Standby Assistance Sit to Supine Sit to Supine Standby Assistance Scooting Scooting to Edge of Bed Standby Assistance PT-Transfer Assessment Sit to and From Stand Sit to and from Stand Contact Guard Assistance,1 Person Assistance,Use of Upper Extremities Equipment Transfer Assistive Device Gait Belt,Front Wheeled Walker Transfers Transfer Destination Bed Transfer Technique pt ambulated with FWW Transfer Ability Level of Assist Contact Guard Assistance,Total Assistance,Use of Upper Extremities Comments Mobility Comments Pt was lying on the [facility] when PT arrived, reporting no pain at rest. BP 131/63 HR 59 SpO2 95% on 2L/min in supine. Pt completed supine to sit and sat EOB with and without UE support. She reported bilateral hip pain as she sat. With gait belt and FWW, pt stood at the edge of the bed with PT providing CGA. In preparation for gait, pt took several small marching steps in place using the FWW for support and weightbearing. She then ambulated ~50 feet with FWW CGA. Gait was markedly slow and pt stated she was moving more slowly than normal because she was feeling extra cautious. She returned to the [facility] and completed sit to supine transfer SBA. She was able to reposition herself in the bed including bridging her hips. BP after activity was 128/62 HR 59 and SpO2 86% on room air. Pt was placed on 2L/ min and recovered her SpO2 to 92% within one minute. Pt was left in the room with call light in reach. Gait Assessment Gait Gait Assistance Required: Contact Guard Assist Distance (Feet) 50 Assistive Devices Assistive Device Gait Belt,Front Wheeled Walker Gait Deviations General Gait Pattern Antalgic,Ataxic,Decreased Feet Clearance,Flexed Trunk, Lateral Trunk Lean,Step-to Gait Factors Limiting Gait Function Factors Limiting Gait Function Decreased Activity Tolerance, Decreased Sensation,Decreased Strength,Difficulty Following Directions,Pain,Poor Balance, Poor Safety Awareness Comments Gait Comments See mobility comments for details. In addition, pt required frequent cues to keep her feet within the walker frame. She tended to drift to her left with her feet outside the base of support on occasion. Once moving, pt was not excessively weightbearing through the walker. Did not assess gait with 4WW but presume pt will be safe to use one at [facility] with assist from staff. Stair Climbing Assessment Comments Stair Climbing Comments Not assessed. No stairs at [facility] . PT-Balance Assessment Sitting Balance and Reactions Static Sitting Balance Ability Normal Dynamic Sitting Balance Ability Normal Standing Balance and Reactions Static Standing Balance Ability Good Dynamic Standing Balance Ability Fair Device Used FWW Balance Tests Single Limb Standing <2 sec BLE M5 PT-IP Objective Assessments Start: 02/12/20 13:55 Freq: Status: Active Protocol: Document 02/12/20 14:40 AW (Rec: 02/12/20 15:35 AW [email or web address]) Orientation Orientation/Cognition Level of Alertness Alert Orientation Name,Month,Place,Situation Language Function Ability No Deficits Noted Safety Awareness Understands Safety Issues, Decreased Safety Awareness Gross Range of Motion Upper Extremity ROM Assessment Within Functional Limits Lower Extremity ROM Assessment Within Functional Limits Strength Upper Extremity Strength Assessment Within Functional Limits Lower Extremity Strength Assessment Within Functional Limits Comments Strength Comments BLE grossly 4/5 Coordination Assessment Gross Coordination Gross Coordination WNL Sensation Assessment Sensation Gross Sensation Right LE Impaired,Left LE Impaired Light Touch Impaired Sensation Description Tingling Comments Sensation Comments Pt reports intermittent tingling in bilateral feet. Muscle Tone Muscle Tone WNL Yes M6 PT-IP Treatment Start: 02/12/20 13:55 Freq: Status: Active Protocol: Document 02/12/20 14:40 AW (Rec: 02/12/20 15:35 AW [email or web address]) Physical Therapy Treatment Education Education Provided Weight Bearing Status,Safety Other Treatments Other Treatment Performed Provided education on role of PT and rationale for selection of an assistive device. M7 PT-IP Assessment and Plan Start: 02/12/20 13:55 Freq: Status: Active Protocol: Document 02/12/20 14:40 AW (Rec: 02/12/20 15:35 AW [email or web address]) PT Summary Assessment and Plan Potential Rehabilitation Potential Good Status of Condition at Evaluation Evolving Summary Impairments Pain,Strength,Balance, Sensation,Bed Mobility, Transfers,Gait,Activity Tolerance Assessment Summary Alyssia is an 84 yo woman seen for PT evaluation at the request of ED provider. She uses a 4WW with SBA for short distance ambulation at her assisted living facility at baseline and a wheelchair for longer distances. She receives facility assist with mobility and ADL's. On evaluation, pt required CGA for transfers and ambulation 50 feet with FWW. Pt was not excessively weightbearing through the walker. Did not assess gait with 4WW but presume pt will be safe to use one at [facility] with assist from staff. As long as pain is controlled, pt is deemed safe to return to [facility] with prior or increased level of assist with mobility needs. Frequency of Treatment Frequency Of Treatment Discharge Recommendations To Nursing Amount of Assist Needed 1 Person Assist Discharge Recommendations PT Discharge Recommendations Home with Assistance,Home with / Assist Transportation Needs at Discharge Wheelchair/Cabulance
--- NOTE | 2020-02-12 15:22 | PC.NURSE ---
Attempted to contact [facility] multiple times to establish plan for pt missing dialysis treatment today. Unable to reach live person, messages left x3. [facility] contacted and advised usually pt would be reschuled if possible or wait for next scheduled appointment. At this time, Pt scheduled for Wednesday at 1000. Pt also agrees this is the normal plan of action. Dr. Hall notified and will contact Provider. Message left for family to call back.
[2020-02-12 16:07] LABS: BUN Creatinine Ratio 6.3 (6-22); Blood Urea Nitrogen 43 mg/dL (7-17); Calcium 7.9 mg/dL (8.4-10.2); Carbon Dioxide 33 mmol/L (22-32); Chloride 91 mmol/L (98-107); Estimated Glomerular Filt Rate 5.8 mL/min (>60); Glucose 162 mg/dL (80-110); HEMOLYSIS < 15 (0-50); Potassium 4.1 mmol/L (3.4-5.1); Sodium 133 mmol/L (137-145)
== END 2020-02-12 17:36 | disposition home or self-care (01) ==
PROVIDERS: Emergency Provider Emergency Medicine; Family Provider Internal Medicine; PCP Internal Medicine
DX: S32.592A Other specified fracture of left pubis, initial encounter for closed fracture (principal); W19.XXXA Unspecified fall, initial encounter
CPT/HCPCS: 72192; 73502; 80048; 93005; 97161; 99284

== ENCOUNTER 2020-02-29 02:38 | Emergency (ER) | payer MEDICARE, OTHER, SELFPAY ==
[2020-02-29] VITALS (19 sets, daily range): BP systolic 147–184; BP diastolic 65–78; PULSE 74–80; RESP 20–22; TEMP 37; O2SAT 90–99; BMI 28.2
--- NOTE | 2020-02-29 02:47 | DI.RAD.S_ITS ---
PROCEDURE: XR CHEST 1V INDICATIONS: dyspnea TECHNIQUE: One view of the chest was acquired. COMPARISON: [facility], CR, XR CHEST 1V, 11/17/2019, 11:14. FINDINGS: Surgical changes and devices: None. Lungs and pleura: Moderate-sized right-sided pleural effusion is increased in size compared to the prior examination. Bilateral lung alveolar in interstitial opacities. Mediastinum: Mediastinal contours appear normal. Heart is enlarged. Bones and chest wall: No suspicious bony lesions. Overlying soft tissues appear unremarkable. IMPRESSION: 1. Moderate-sized right-sided pleural effusion. 2. Bilateral lung alveolar and interstitial opacities which could represent multilobar pneumonia or pulmonary edema. 3. Cardiomegaly. Dictated by: Jazmine Tellez MD, PhD on 02/29/2020 at 7:54 Approved by: Jazmine Tellez MD, PhD on 02/29/2020 at 7:55
--- NOTE | 2020-02-29 02:48 | ED.GENADULT ---
HPI - General Adult General Chief complaint: Shortness of Breath/Dyspnea Stated complaint: SOB Time Seen by Provider: 02/29/20 02:40 History of Present Illness HPI narrative: 84-year-old woman with history of renal failure and dialysis Wednesday, COPD with home oxygen at night, hypertension, hyperlipidemia currently lives in assisted living facility. Tonight issues getting ready for bed she became acutely more dyspneic as she was climbing into bed. Oxygen was turned from 2-3 L but dyspnea continued. She did have 2 puffs of her albuterol and when medics arrived she had an additional 2 puffs. She is feeling somewhat better on arrival with saturations coming from the low 90s to the mid 90s. She did have her usual dialysis today however the run was a bit longer than usual was paused in the center of the run for some reason and she reports that she was more fatigued than she usually is after her dialysis today. She describes no fevers or chills. No abdominal pain. With the dyspnea she is not complaining of any chest pain or diaphoresis. No change to bowel habits. Patient makes no urine. Patient notes that she did have severe constipation last weekend and once her bowels did begin to move she had quite a bit of hemorrhoidal bleeding that does seem to have stopped recently. 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 Related Data Home Medications Medication Instructions Recorded Confirmed carvedilol [Coreg] 1 tab PO BID #0 01/10/17 12/05/18 fluticasone propionate 1 spray INTRANASAL DAILY #0 01/10/17 12/05/18 loratadine 10 mg PO DAILY PRN #0 01/10/17 12/05/18 Lactobacillus acidophilus 1 cap PO BIDWM 03/21/18 12/05/18 [Acidophilus] Nepro Liquid 1 ea PO QPM 03/21/18 12/05/18 T-Relief 1 applic TOPICAL PRN PRN 03/21/18 12/05/18 albuterol sulfate [ProAir HFA] 2 puff INHALATION Q4H PRN 03/21/18 12/05/18 amlodipine 20 mg PO BEDTIME 03/21/18 12/05/18 carica papaya [Papaya Enzyme] 1 tab PO DAILY PRN 03/21/18 12/05/18 cinacalcet [Sensipar] 1 tab PO DAILY 03/21/18 12/05/18 docusate sodium 100 mg PO DAILY 03/21/18 12/05/18 doxazosin 4 mg PO BID 03/21/18 12/05/18 fluticasone propion-salmeterol 1 puff INHALATION BID 03/21/18 12/05/18 [Advair HFA] ibuprofen 200 mg PO Q4H PRN 03/21/18 12/05/18 lidocaine-prilocaine 1 applic TOPICAL 3XW 03/21/18 12/05/18 loperamide 1 dose PO DIRECTED MDD 60 ml 03/21/18 12/05/18 multivitamin [Daily Multi-Vitamin] 1 tab PO DAILY 03/21/18 12/05/18 ondansetron 4 mg PO TID PRN 03/21/18 12/05/18 phenazopyridine 200 mg PO TID PRN MDD 2 days 03/21/18 12/05/18 spironolactone 25 mg PO DAILY 03/21/18 12/05/18 trazodone 25 mg PO BEDTIME 03/21/18 12/05/18 valsartan 1 tab PO BEDTIME 03/21/18 12/05/18 aspirin 81 mg PO DAILY 12/05/18 12/05/18 atorvastatin 40 mg PO DAILY 12/05/18 12/05/18 hydralazine 25 mg PO QID 12/05/18 12/05/18 Previous Rx's Medication Instructions Recorded diphenhydramine HCl [Benadryl] 25 mg PO Q6H PRN #20 cap 11/17/19 hydrocodone-acetaminophen [[place]] 1 tab PO Q6H PRN #10 tab 11/17/19 ondansetron HCl [Zofran] 4 mg PO Q6H PRN #14 tab 11/17/19 docusate sodium 100 mg PO DAILY #30 cap 02/12/20 hydrocodone-acetaminophen [[place]] 1 tab PO Q6H PRN #14 tab 02/12/20 Allergies Allergy/AdvReac Type Severity Reaction Status Date / Time Penicillins [PENICILLINS] Allergy Unknown RASH Verified 11/17/19 09:53 Sulfa (Sulfonamide Allergy Unknown RASH Verified 11/17/19 09:53 Antibiotics) [SULFA (SULFONAMIDE ANTIBIOTICS)] aspirin Allergy Verified 11/17/19 09:53 codeine Allergy Verified 11/17/19 09:53 Review of Systems Review of Systems Narrative: Remainder of review of systems including constitutional, ENT, cardiovascular, respiratory, GI, , musculoskeletal, skin, neurologic and psychiatric systems reviewed and are unremarkable except as noted in HPI. Patient History Medical History Diabetes (Acute) Dialysis patient (Acute) Hyperlipidemia (Acute) Hypertension (Acute) Renal failure (Acute) Social History household members: none Smoking Status: Never smoker Smoking Status: Never smoker Substance Use Type: does not use Exam Narrative Exam Narrative: General: Frail, mild respiratory distress using abdominal muscles to assist with breathing but able to speak in full sentences HEENT: Moist mucous membranes, normal sclera with reactive pupils, Neck: No JVD, supple Respiratory: With scattered minor wheezing and wheezing mild rhonchi in the right base with decreased breath sounds in the right base as well. Abdominal accessory muscle use but no intracostal retraction and no supraclavicular retractions Cardiac: Regular rate and rhythm no murmurs no bruits Abdomen: Soft nontender good bowel tones, no flank pain. Skin: Frail and dry, no rashes Neurologic: Grossly neurologically intact, globally weak with no obvious asymmetries or abnormalities Extremities: No trauma, well perfused, right upper extremity fistula with good palpable thrill Psych: Cooperative, no obvious confusion Rectal: Weakly guaiac-positive brown stool. Initial Vital Signs Initial Vital Signs: Vital Signs Temperature 98.6 F 02/29/20 02:25 Pulse Rate 80 02/29/20 02:25 Respiratory Rate 22 02/29/20 02:25 Blood Pressure 181/77 H 02/29/20 02:25 Pulse Oximetry 96 02/29/20 02:25 Scores ABCD2 Citation: Lancet. 2006Jul 17;369(4109):875-46. Validation and refinement of scores to predict very early stroke risk after transient ischaemic attack. Nakul SC1, Antonino PM, Karina MN, Everardo MF, Dudley JS, Domitila AL, Samson S. Course Orders Ordered: ED Orders 02/29/20 02:47 XR chest 1V Stat Urinalysis and Microscopic Stat 02/29/20 02:48 EKG-12 Lead Stat 02/29/20 03:30 Complete Blood Count AUTO DIFF Stat Comprehensive Metabolic Panel Stat Troponin I Stat 02/29/20 04:36 COVID19 -ED/INPAT/OR/L&D Stat Vital Signs Vital signs: Vital Signs - 8 hr 02/29/20 02:25 02/29/20 02:41 02/29/20 02:42 Temperature 98.6 F Pulse Rate 80 80 Respiratory Rate 22 20 Blood Pressure 181/77 H 181/77 H Pulse Oximetry 96 92 02/29/20 03:00 02/29/20 03:30 02/29/20 03:33 Temperature Pulse Rate 76 77 77 Respiratory Rate Blood Pressure 173/73 H Pulse Oximetry 99 95 95 Medical Decision Making Medical Records Medical records reviewed: Yes I reviewed the patient's medical records. Lab Data Lab results reviewed: Yes I reviewed the patient's lab results. Result diagrams: 02/29/20 03:30 02/29/20 03:30 Labs: Lab Results 02/29/20 02/29/20 Range/Units 03:30 03:30 WBC 11.8 H (4.5-11.0) X10^3/uL RBC 2.85 L (4.0-5.2) X10^6/uL Hgb 8.6 L (12.0-16.0) g/dL Hct 26.8 L (36-46) % MCV 94.3 (80-100) fL MCH 30.1 (26-34) PG MCHC 31.9 (30-36) % RDW 16.3 H (11.6-14.8) % Plt Count 388 (150-400) X10^3/uL Neut % (Auto) 88.0 H (50-75) % Lymph % (Auto) 4.6 L (25-40) % Graves % (Auto) 5.1 (3-14) % Eos % (Auto) 1.5 L (2-4) % Baso % (Auto) 0.8 (0-2) % Neut # (Auto) 85691 H (8443-6576) /uL Lymph # (Auto) 500 L (8506-1655) /uL Graves # (Auto) 600 (0-900) /uL Eos # (Auto) 200 (0-450) /uL Baso # (Auto) 100 (0-100) /uL Sodium 134 L (137-145) mmol/L Potassium 4.0 (3.4-5.1) mmol/L Chloride 94 L (98-107) mmol/L Carbon Dioxide 33 H (22-32) mmol/L BUN 25 H (7-17) mg/dL Creatinine 4.26 H (0.52-1.04) mg/dL Estimated GFR 9.9 L (>60) mL/min BUN/Creatinine Ratio 5.9 L (6-22) Glucose 147 H (80-110) mg/dL Calcium 8.5 (8.4-10.2) mg/dL Total Bilirubin 0.8 (0.2-1.3) mg/dL AST 27 (14-36) IU/L ALT 10 (<35) IU/L Alkaline Phosphatase 67 (38-126) U/L Troponin I 0.039 H (0.01-0.034) ng/mL Total Protein 7.2 (6.3-8.2) g/dL Albumin 3.5 (3.5-5.0) g/dL Globulin 3.7 (1.7-4.1) g/dL Albumin/Globulin Ratio 0.9 L (1.0-2.8) Imaging Data Chest x-ray: Attestation: I personally reviewed and interpreted this imaging study as follows: My Impression: Worsening congestive heart failure pattern with interstitial findings and increased right pleural effusion ECG Data Attestation: I personally reviewed and interpreted this ECG as follows: Interpretation: Sinus rhythm at a rate of [address] T-wave changes MDM Narrative Medical decision making narrative: 84-year-old woman with increasing dyspnea tonight. Slightly more anemic, she noted some bright red blood per rectum after some constipation this weekend that does seem to be improving but she does have weakly guaiac-positive stool currently. Increased interstitial findings and increased right pleural effusion in the setting of chronic renal failure and no urine production at all. No suggestion of infection. Increasing orthopnea and increasing oxygen needs with oxygen saturations comfortably in the mid 90s now at 4 L nasal cannula. Will need admission for congestive heart failure in the setting of acute renal failure. Will likely need additional dialysis for volume loading. May benefit from red cell transfusion just her oxygen carrying capacity but will need to assess after more volume has been removed. No signs of infection at this point and a rapid Covid test will be done. Will check on bed availability at [facility] due to dialysis availability. 4:50 Dr Head, hospitalist. [facility] nephrology consult prior to accepting patient. Patient's cardiolgist is Dr Guerrero, there are no prior Echocardiogram reports available in our EMR 5:00 Dr Guidry, gas station operator, agrees with transfer and will consult. 5:[address] 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 Discharge Plan Departure Prescriptions: No Action carvedilol [Coreg] 12.5 MG tablet 1 tab PO BID Qty: 0 RF: 0 fluticasone propionate 16 GM spray,suspension 1 spray Intranasal DAILY Qty: 0 RF: 0 loratadine 10 MG tablet 10 mg PO DAILY PRN (Reason: Congestion) Qty: 0 RF: 0 hydrocodone-acetaminophen [Buffalo] 5-325 mg tablet 1 tab PO Q6H PRN (Reason: pain) Qty: 10 RF: 0 ondansetron HCl [Zofran] 4 mg tablet 4 mg PO Q6H PRN (Reason: nausea and vomiting) Qty: 14 RF: 0 diphenhydramine HCl [Benadryl] 25 mg capsule 25 mg PO Q6H PRN (Reason: nausea and vomiting) Qty: 20 RF: 0 trazodone 50 mg tablet 25 mg PO BEDTIME RF: 0 spironolactone 25 mg tablet 25 mg PO DAILY RF: 0 amlodipine 10 mg tablet 20 mg PO BEDTIME RF: 0 valsartan 320 mg tablet 1 tab PO BEDTIME RF: 0 doxazosin 4 mg tablet 4 mg PO BID RF: 0 albuterol sulfate [ProAir HFA] 90 mcg/actuation HFA aerosol inhaler 2 puff Inhalation Q4H PRN (Reason: cough,wheeze,shortness of candis) RF: 0 Advair HFA 230-21 mcg/actuation Hfa Aerosol Inhaler 1 puff Inhalation BID RF: 0 multivitamin [Daily Multi-Vitamin] Tablet 1 tab PO DAILY RF: 0 lidocaine-prilocaine 2.5-2.5 % Cream 1 applic Topical 3XW RF: 0 docusate sodium 100 mg Capsule 100 mg PO DAILY RF: 0 carica papaya [Papaya Enzyme] Tablet 1 tab PO DAILY PRN (Reason: supplement) RF: 0 loperamide 1 mg/5 mL Liquid 1 dose PO DIRECTED MDD 60 ml RF: 0 phenazopyridine 100 mg Tablet 200 mg PO TID MDD 2 days PRN (Reason: urinary pain) RF: 0 ibuprofen 200 mg Tablet 200 mg PO Q4H PRN (Reason: pain) RF: 0 Lactobacillus acidophilus [Acidophilus] Capsule 1 cap PO BIDWM RF: 0 ondansetron 4 mg Tablet,Disintegrating 4 mg PO TID PRN (Reason: Nausea) RF: 0 cinacalcet [Sensipar] 30 mg Tablet 1 tab PO DAILY RF: 0 Nepro Liquid 1 ea PO QPM RF: 0 T-Relief cream 1 applic Topical PRN PRN (Reason: pain) RF: 0 atorvastatin 40 mg tablet 40 mg PO DAILY RF: 0 hydralazine 25 mg tablet 25 mg PO QID RF: 0 aspirin 81 mg Tablet,Delayed Release (Dr/Ec) 81 mg PO DAILY RF: 0 hydrocodone-acetaminophen [Buffalo] 5-325 mg tablet 1 tab PO Q6H PRN (Reason: pain) Qty: 14 RF: 0 docusate sodium 100 mg capsule 100 mg PO DAILY Qty: 30 RF: 0
[2020-02-29 03:43] LABS: Add Manual Diff / Slide Review NO; Basophils Absolute Auto 100 /uL (0-100); Basophils Percent Auto 0.8 % (0-2); Eosinophils Absolute Auto 200 /uL (0-450); Eosinophils Percent Auto 1.5 % (2-4); Hematocrit 26.8 % (36-46); Hemoglobin 8.6 g/dL (12.0-16.0); Lymphocytes Absolute Auto 500 /uL (1100-4500); Lymphocytes Percent Auto 4.6 % (25-40); Mean Corpuscular HGB Conc 31.9 % (30-36); Mean Corpuscular Hemoglobin 30.1 PG (26-34); Mean Corpuscular Volume 94.3 fL (80-100); Monocytes Absolute Auto 600 /uL (0-900); Monocytes Percent Auto 5.1 % (3-14); Neutrophils Absolute Auto 10400 /uL (1500-7000); Platelet Count 388 X10^3/uL (150-400); Red Blood Cell Count 2.85 X10^6/uL (4.0-5.2); Red Cell Distribution Width 16.3 % (11.6-14.8); White Blood Cell Count 11.8 X10^3/uL (4.5-11.0)
[2020-02-29 03:48] LABS: Alanine Aminotransferase 10 IU/L (<35); Albumin 3.5 g/dL (3.5-5.0); Albumin Globulin Ratio 0.9 (1.0-2.8); Alkaline Phosphatase 67 U/L (38-126); Aspartate Aminotransferase 27 IU/L (14-36); BUN Creatinine Ratio 5.9 (6-22); Bilirubin Total 0.8 mg/dL (0.2-1.3); Blood Urea Nitrogen 25 mg/dL (7-17); Calcium 8.5 mg/dL (8.4-10.2); Carbon Dioxide 33 mmol/L (22-32); Chloride 94 mmol/L (98-107); Estimated Glomerular Filt Rate 9.9 mL/min (>60); Globulin 3.7 g/dL (1.7-4.1); Glucose 147 mg/dL (80-110); HEMOLYSIS < 15 (0-50); Sodium 134 mmol/L (137-145); Total Protein 7.2 g/dL (6.3-8.2)
[2020-02-29 04:00] LABS: Troponin I 0.039 ng/mL (0.01-0.034)
[2020-02-29 05:12] LABS: COVID19 -Nasal RAPID Negative (Negative)
--- NOTE | 2020-02-29 06:52 | PC.NURSE ---
Pt given incentive spirometry and instructed on use. Pt demonstrated understanding.
--- NOTE | 2020-02-29 09:21 | PC.NURSE ---
Report given to Sonia RN PCU [facility]
== END 2020-02-29 09:10 | disposition short-term general hospital (02) ==
PROVIDERS: Emergency Provider Emergency Medicine; Family Provider Internal Medicine; PCP Internal Medicine
DX: I50.9 Heart failure, unspecified (principal); I11.0 Hypertensive heart disease with heart failure; J90 Pleural effusion, not elsewhere classified; D64.9 Anemia, unspecified; R06.01 Orthopnea; R06.00 Dyspnea, unspecified; K59.00 Constipation, unspecified; J44.9 Chronic obstructive pulmonary disease, unspecified; E78.5 Hyperlipidemia, unspecified; N17.9 Acute kidney failure, unspecified; Z99.2 Dependence on renal dialysis
CPT/HCPCS: 36415; 71045; 80053; 84484; 85025; 87635; 93005; 99284; 99285

== ENCOUNTER 2020-04-02 10:25 | Emergency (ER) | payer MEDICARE, OTHER, SELFPAY ==
--- NOTE | 2020-04-02 10:31 | ED_ITS ---
HPI - Head Injury General Chief complaint: Head Injury Stated complaint: GLF Time Seen by Provider: 04/02/20 10:30 Source: patient and EMS Mode of arrival: EMS Limitations: no limitations History of Present Illness HPI Narrative: Patient brought in by ambulance from assisted living. She was trying to feed her cat, it was bent over and lost her balance and fell to the left side hitting the left side of her head against the refrigerator. Also complains of left ring finger pain. No loss of consciousness. is on baby aspirin a day. No confusion. Not repeating questions. No nausea vomiting. Is on nasal cannula continuously at home. No headache. No bleeding. Denies any neck pain. Denies any other injury. No other limb for joint pain or injury. No back pain. Related Data Home Medications Medication Instructions Recorded Confirmed carvedilol [Coreg] 1 tab PO BID #0 01/10/17 12/05/18 fluticasone propionate 1 spray INTRANASAL DAILY #0 01/10/17 12/05/18 loratadine 10 mg PO DAILY PRN #0 01/10/17 12/05/18 Lactobacillus acidophilus 1 cap PO BIDWM 03/21/18 12/05/18 [Acidophilus] Nepro Liquid 1 ea PO QPM 03/21/18 12/05/18 T-Relief 1 applic TOPICAL PRN PRN 03/21/18 12/05/18 albuterol sulfate [ProAir HFA] 2 puff INHALATION Q4H PRN 03/21/18 12/05/18 amlodipine 20 mg PO BEDTIME 03/21/18 12/05/18 carica papaya [Papaya Enzyme] 1 tab PO DAILY PRN 03/21/18 12/05/18 cinacalcet [Sensipar] 1 tab PO DAILY 03/21/18 12/05/18 docusate sodium 100 mg PO DAILY 03/21/18 12/05/18 doxazosin 4 mg PO BID 03/21/18 12/05/18 fluticasone propion-salmeterol 1 puff INHALATION BID 03/21/18 12/05/18 [Advair HFA] ibuprofen 200 mg PO Q4H PRN 03/21/18 12/05/18 lidocaine-prilocaine 1 applic TOPICAL 3XW 03/21/18 12/05/18 loperamide 1 dose PO DIRECTED MDD 60 ml 03/21/18 12/05/18 multivitamin [Daily Multi-Vitamin] 1 tab PO DAILY 03/21/18 12/05/18 ondansetron 4 mg PO TID PRN 03/21/18 12/05/18 phenazopyridine 200 mg PO TID PRN MDD 2 days 03/21/18 12/05/18 spironolactone 25 mg PO DAILY 03/21/18 12/05/18 trazodone 25 mg PO BEDTIME 03/21/18 12/05/18 valsartan 1 tab PO BEDTIME 03/21/18 12/05/18 aspirin 81 mg PO DAILY 12/05/18 12/05/18 atorvastatin 40 mg PO DAILY 12/05/18 12/05/18 hydralazine 25 mg PO QID 12/05/18 12/05/18 Previous Rx's Medication Instructions Recorded diphenhydramine HCl [Benadryl] 25 mg PO Q6H PRN #20 cap 11/17/19 hydrocodone-acetaminophen [[place]] 1 tab PO Q6H PRN #10 tab 11/17/19 ondansetron HCl [Zofran] 4 mg PO Q6H PRN #14 tab 11/17/19 docusate sodium 100 mg PO DAILY #30 cap 02/12/20 hydrocodone-acetaminophen [[place]] 1 tab PO Q6H PRN #14 tab 02/12/20 Allergies Allergy/AdvReac Type Severity Reaction Status Date / Time Penicillins [PENICILLINS] Allergy Unknown RASH Verified 04/02/20 10:51 Sulfa (Sulfonamide Allergy Unknown RASH Verified 04/02/20 10:51 Antibiotics) [SULFA (SULFONAMIDE ANTIBIOTICS)] aspirin Allergy Verified 04/02/20 10:51 codeine Allergy Verified 04/02/20 10:51 Review of Systems Review of Systems Narrative: GENERAL: Denies chills, fatigue, malaise, fever, sweats. HEENT: Denies sinus pain, ear pain, sore throat, difficulty swallowing RESPIRATORY: Denies dyspnea, cough CARDIOVASCULAR: Denies chest pain, palpitations, edema, GASTROINTESTINAL: Denies nausea, vomiting, abdominal pain, diarrhea, constipation, melena. : Denies dysuria, frequency, hematuria MUSCULOSKELETAL: denies muscle complains of bony pain SKIN: Denies rash, skin lesions NEUROLOGIC: Denies weakness, headache, numbness, change in speech, confusion PSYCHIATRIC: No SI or HI or hallucinations ROS Unobtainable: All systems reviewed & are unremarkable except as noted in HPI and below Patient History Medical History Diabetes (Acute) Dialysis patient (Acute) Hyperlipidemia (Acute) Hypertension (Acute) Renal failure (Acute) Social History household members: none Smoking Status: Never smoker Smoking Status: Never smoker Substance Use Type: does not use Exam Narrative Exam Narrative: GENERAL: patient appears stated age. Well-nourished, well- developed patient, in no distress, not toxic not dyspneic HEAD: Normocephalic. Mild tenderness to the left parietal scalp. No bleeding no skin injury otherwise. No crepitus or step-off. EYES: Pupils equal round and reactive. No scleral icterus. No injection no discharge ENT: Mucous membranes moist. No drooling no tongue elevation no trismus no malocclusion NECK: Trachea midline. Non tender, no midline tenderness or step-off. CARDIOVASCULAR: Regular rate and rhythm without murmurs, gallops, or rubs. RESPIRATORY: Clear to auscultation. Breath sounds equal bilaterally. No wheezes, rales, or rhonchi. GASTROINTESTINAL: Abdomen soft, non-tender, nondistended. EXTREMITIES: No gross deformities. Examination left hand. Nontender fingers and thumb. 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 Full active range of motion at the 4th MCP PIP and PIP joints. Skin intact. Jewelry ring removed off of the finger. BACK: Nontender without deformity or crepitance. No flank tenderness. No midline tenderness or step-off. NEURO: AOx4. SKIN: Warm and dry PSYCH: Not anxious, is cooperative Initial Vital Signs Initial Vital Signs: Vital Signs Pulse Rate 69 04/02/20 10:33 Pulse Oximetry 100 04/02/20 10:33 Course Course Course Narrative: No new complaints. Clinically not a wrist fracture. Nontend er at the wrist. Orders Ordered: ED Orders 04/02/20 10:30 CT cervical spine wo con Stat CT head/brain wo con Stat XR finger LT min 2V Stat Reevaluation(s) Reevaluation #1: No new complaints. Son now is at bedside. Review results with patient and son. They desire discharge home. Time: 11:19 Vital Signs Vital signs: Vital Signs - 8 hr 04/02/20 10:33 04/02/20 10:35 04/02/20 10:50 Pulse Rate 69 64 63 Respiratory Rate 16 Blood Pressure 157/67 H 173/67 H Pulse Oximetry 100 100 100 04/02/20 11:00 04/02/20 11:36 Pulse Rate 64 65 Respiratory Rate 18 Blood Pressure 165/68 H 156/68 H Pulse Oximetry 100 100 MDM - Head Injury Differential Diagnosis Differential diagnosis: Likely concussion without loss of consciousness, closed head injury, subdural hematoma and other (Scalp hematoma. Finger sprain) Imaging Data CT scan - head: Radiologist's Impression: [address] [address] [address] Scan Report Signed Patient: Alyssia Chavez GMR#: [id number] : 5Acct:[id number] Age/Sex: 84 / FDate of Service: 04/02/20 Loc: ED Accession Number: [id number] Procedure: CT head/brain wo con Ordering Provider: Lyle Huddleston MD PROCEDURE: CT HEAD/BRAIN WO CON INDICATIONS: Fall/injury TECHNIQUE: Noncontrast 4.5 mm thick angled axial sections acquired from the foramen magnum to the vertex, with coronal and sagittal reformats. For radiation dose reduction, the following was used: automated exposure control, adjustment of mA and/or kV according to patient size. COMPARISON: [facility], CT, HEAD WITHOUT CONTRAST, 01/10/2017, 2:37. FINDINGS: Image quality: Excellent. CSF spaces: Basal cisterns are patent. No extra-axial fluid collections. The ventricles are symmetric in size and shape. Brain: No intracranial bleeds or masses. There is cerebral volume loss for age, with resultant ventricular and sulcal prominence. There are periventricular and deep white matter chronic small vessel ischemic changes. There is intracranial internal carotid artery atherosclerosis. Skull and face: Calvarium and visualized facial bones appear intact, without suspicious lesions. Sinuses: Visualized sinuses and mastoids are clear. IMPRESSION: 1. No acute intracranial process. 2. Moderate atrophy and chronic microvascular ischemic changes. Dictated by: Daphnie Denise M.D. on 04/02/2020 at 10:58 Approved by: Daphnie Denise M.D. on 04/02/2020 at 11:02 CT - cervical spine: Radiologist's Impression: [address] [address] [address] Scan Report Signed Patient: Alyssia Chavez R#: [id number] : 5Acct:[id number] Age/Sex: 84 / FDate of Service: 04/02/20 Loc: ED Accession Number: [id number] Procedure: CT cervical spine wo con Ordering Provider: Lyle Huddleston MD PROCEDURE: CT CERVICAL SPINE WO CON INDICATIONS: Fall/injury TECHNIQUE: Noncontrast 3 mm thick sections acquired from the skull base to the T4 level. Sagittal and coronal reformats were then constructed. For radiation dose reduction, the following was used: automated exposure control, adjustment of mA and/or kV according to patient size. COMPARISON: None. FINDINGS: Image quality: Excellent. Bones: No fractures or dislocations. Visualized superior ribs are intact. Multilevel degenerative changes are present. Soft tissues: Prevertebral soft tissues are normal in thickness. No paravertebral hematomas. No apical pneumothoraces. Minimal right effusion. IMPRESSION: No fracture or dislocation. Dictated by: Daphnie Denise M.D. on 04/02/2020 at 11:02 Approved by: Daphnie Denise M.D. on 04/02/2020 at 11:05 X-ray left finger: Radiologist's Impression: [address] [address] XRay Report Signed Patient: Alyssia Chavez R#: [id number] : 5Acct:[id number] Age/Sex: 84 / FDate of Service: 04/02/20 Loc: ED Accession Number: [id number] Procedure: XR finger LT min 2V Ordering Provider: Lyle Huddleston MD PROCEDURE: XR FINGER LT MIN 2V INDICATIONS: Fall/injury TECHNIQUE: AP hand, 2 views of the 4th finger(s) acquired. COMPARISON: None. FINDINGS: Bones: No definite fractures or dislocations. A subtle subluxation of the 1st digit MCP joint. A subtle lucency at the radial styloid seen on 1 projection. No suspicious bony lesions. Osteopenia. Soft tissues: No suspicious soft tissue calcifications. Vascular calcifications. IMPRESSION: No fracture of the 4th digit is seen. Lucency at the radial styloid could represent a nondisplaced fracture. This is only seen on 1 projection. -recommend correlation for point tenderness. Consider radiographs of the wrist for further evaluation. Bones are osteopenic. Dictated by: Jose Tam M.D. on 04/02/2020 at 11:08 Approved by: Jose Tam M.D. on 04/02/2020 at 11:13 [facility] Narrative Medical decision making narrative: Appropriate for discharge home. Not toxic. No neuro complaints. Discharge Plan Departure Patient Disposition: Home Clinical Impression: Hematoma of scalp Qualifiers: Encounter type: initial encounter Qualified Code(s): S00.03XA - Contusion of scalp, initial encounter Contusion of finger of left hand Qualifiers: Encounter type: initial encounter Finger: ring finger Damage to nail status: without damage Qualified Code(s): S60.042A - Contusion of left ring finger without damage to nail, initial encounter Discharge Date/Time: 04/02/20 11:30 Instructions: DI for Contusion, DI for Closed Head Injury Activity Restrictions/Additional Instructions: See family doctor this week for recheck. Return if worse. Return if any questions or concerns or if any confusion. May take Tylenol for pain. Prescriptions: No Action carvedilol [Coreg] 12.5 MG tablet 1 tab PO BID Qty: 0 RF: 0 fluticasone propionate 16 GM spray,suspension 1 spray Intranasal DAILY Qty: 0 RF: 0 loratadine 10 MG tablet 10 mg PO DAILY PRN (Reason: Congestion) Qty: 0 RF: 0 hydrocodone-acetaminophen [[place]] 5-325 mg tablet 1 tab PO Q6H PRN (Reason: pain) Qty: 10 RF: 0 ondansetron HCl [Zofran] 4 mg tablet 4 mg PO Q6H PRN (Reason: nausea and vomiting) Qty: 14 RF: 0 diphenhydramine HCl [Benadryl] 25 mg capsule 25 mg PO Q6H PRN (Reason: nausea and vomiting) Qty: 20 RF: 0 trazodone 50 mg tablet 25 mg PO BEDTIME RF: 0 spironolactone 25 mg tablet 25 mg PO DAILY RF: 0 amlodipine 10 mg tablet 20 mg PO BEDTIME RF: 0 valsartan 320 mg tablet 1 tab PO BEDTIME RF: 0 doxazosin 4 mg tablet 4 mg PO BID RF: 0 albuterol sulfate [ProAir HFA] 90 mcg/actuation HFA aerosol inhaler 2 puff Inhalation Q4H PRN (Reason: cough,wheeze,shortness of candis) RF: 0 Advair HFA 230-21 mcg/actuation Hfa Aerosol Inhaler 1 puff Inhalation BID RF: 0 multivitamin [Daily Multi-Vitamin] Tablet 1 tab PO DAILY RF: 0 lidocaine-prilocaine 2.5-2.5 % Cream 1 applic Topical 3XW RF: 0 docusate sodium 100 mg Capsule 100 mg PO DAILY RF: 0 carica papaya [Papaya Enzyme] Tablet 1 tab PO DAILY PRN (Reason: supplement) RF: 0 loperamide 1 mg/5 mL Liquid 1 dose PO DIRECTED MDD 60 ml RF: 0 phenazopyridine 100 mg Tablet 200 mg PO TID MDD 2 days PRN (Reason: urinary pain) RF: 0 ibuprofen 200 mg Tablet 200 mg PO Q4H PRN (Reason: pain) RF: 0 Lactobacillus acidophilus [Acidophilus] Capsule 1 cap PO BIDWM RF: 0 ondansetron 4 mg Tablet,Disintegrating 4 mg PO TID PRN (Reason: Nausea) RF: 0 cinacalcet [Sensipar] 30 mg Tablet 1 tab PO DAILY RF: 0 Nepro Liquid 1 ea PO QPM RF: 0 T-Relief cream 1 applic Topical PRN PRN (Reason: pain) RF: 0 atorvastatin 40 mg tablet 40 mg PO DAILY RF: 0 hydralazine 25 mg tablet 25 mg PO QID RF: 0 aspirin 81 mg Tablet,Delayed Release (Dr/Ec) 81 mg PO DAILY RF: 0 hydrocodone-acetaminophen [[place]] 5-325 mg tablet 1 tab PO Q6H PRN (Reason: pain) Qty: 14 RF: 0 docusate sodium 100 mg capsule 100 mg PO DAILY Qty: 30 RF: 0 Referrals: Fuentes Singleton MD [Primary Care Provider] -
[2020-04-02 10:33] VITALS: PULSE 69; O2SAT 100
[2020-04-02 10:35] VITALS: BP 157/67; PULSE 64; RESP 16; O2SAT 100; BMI 21.9
[2020-04-02 10:50] VITALS: BP 173/67; PULSE 63; O2SAT 100
[2020-04-02 11:00] VITALS: BP 165/68; PULSE 64; O2SAT 100
[2020-04-02 11:36] VITALS: BP 156/68; PULSE 65; RESP 18; O2SAT 100
== END 2020-04-02 11:30 | disposition home or self-care (01) ==
PROVIDERS: Emergency Provider Emergency Medicine; Family Provider Internal Medicine; PCP Internal Medicine
DX: S00.03XA Contusion of scalp, initial encounter (principal); S60.042A Contusion of left ring finger without damage to nail, initial encounter; W19.XXXA Unspecified fall, initial encounter
CPT/HCPCS: 70450; 72125; 73140; 99284; 99285